=== PATIENT | male | born 1940 | race Caucasian/White ===

== ENCOUNTER → 2016-07-07 | Outpatient (REF) | payer BC, MEDICARE ==
[~2016-07-07] MED LIST: ACYC400T; ASPI-345; BSC10SU PR; DGX.25T PO; DIVA500T15 PO; GLIM2TAB PO; HYDR50CA3 PO; IMIP50TA4; INSU100C7 SQ; LEVO50TA6 PO; LSNP10T; LVT.025T; METF1000 PO; METF500T4 PO; POLY17PO6 PO; QUET100T29 PO; RISP2TAB3 PO; RSP3T PO; TAMS-8; WRF5T PO
== END ==
LOC: EMS 11:33
DX: Z53.20 Procedure and treatment not carried out because of patient's decision for unspecified reasons (principal)

== ENCOUNTER 2016-07-08 12:17 | Inpatient (IN) | payer BC, MEDICARE ==
[~2016-07-08] VITALS: Ht 185.4 cm; Wt 119.5 kg
[~2016-07-08 12:17] MED LIST changes: -BSC10SU PR; -DGX.25T PO; -GLIM2TAB PO; -LEVO50TA6 PO; -POLY17PO6 PO; -RISP2TAB3 PO; -WRF5T PO
[2016-07-08] MEDS ORDERED: BSC10SU PR (12:46)
[2016-07-08] MEDS ORDERED: LEVO50TA6 PO (12:46)
[2016-07-08] MEDS ORDERED: GLIM2TAB PO (12:46)
[2016-07-08 13:11] LABS: BASOPHILS % (AUTO) 0 % (0-2); EOSINOPHILS # (AUTO) 0.1 10^3uL; EOSINOPHILS % (AUTO) 2 % (0-4); LYMPHOCYTES # (AUTO) 1.8 X10^3; MEAN CORPUSCULAR HEMOGLOBIN 30.4 PG (26.0-34.0); MEAN CORPUSCULAR HGB CONC 34.9 g/dL (31.0-37.0); MEAN CORPUSCULAR VOLUME 87 FL (80-100); MEAN PLATELET VOLUME 11.4 FL (6.0-9.5); MONOCYTES # (AUTO) 0.6 X10^3; MONOCYTES % (AUTO) 10 % (3-11); NEUTROPHILS # (AUTO) 3.7 X10^3; NEUTROPHILS % (AUTO) 59 % (51-67); PLATELET COUNT 180 10^3uL (150-450); WHITE BLOOD COUNT 6.25 10^3uL (4.0-11.0)
[2016-07-08 13:24] LABS: ALBUMIN 3.7 g/dL (3.4-5.0); ANION GAP 15.3 MEQ/L (3-15); CALCULATED IONIZED CALCIUM 4.1 mg/dL (3.8-4.6)
[2016-07-08 13:48] LABS: BILIRUBIN,URINE Negative (Negative); CLARITY,URINE Clear; COLOR,URINE Yellow; GLUCOSE, URINE (UA) 3+ (Negative); LEUKOCYTE ESTERASE ,URINE Negative (Negative); UROBILINOGEN,URINE 0.2 mg/dL (0.2-1.0)
[2016-07-08 13:53] LABS: RBC,URINE 0-2 /HPF; URINE CENTRIFUGED VOLUME 12 mL
[2016-07-08] MEDS ORDERED: INSULIN REGULAR 1 UNIT/0.01 ML DOSE IV ONE (15:40)
--- NOTE | 2016-07-08 16:46 | NUR ---
Patient up to toilet to void. Bed bath given at edge of bed. New shorts provided to patient after soiling his own.
--- NOTE | 2016-07-08 17:57 | NUR ---
DR WEBSTER TALKS WITH DR MONTES RE PT. CL
--- NOTE | 2016-07-08 18:32 | NUR ---
Patient taken to 3rd floor shower by this nurse via wheelchair. Patient ambulates to shower chair with assistance of one. Paperwork, clothes, wallet, keys and glasses all taken to ICU. Handed over to KRISTAN Erickson. Care relinquished.
--- NOTE | 2016-07-08 19:03 | NUR ---
Ruddy arrives to room [address]. [address]. HR in the 150s
--- NOTE | 2016-07-08 19:06 | NUR ---
Report given to Maggi RUSHING and care relinquished.
--- NOTE | 2016-07-08 19:45 | History and Physical (E) ---
History & Physical PCP: Galen Dixon MD CC Falls and poor self care HPI Mr. Santos is known to our service from a similar admit in the spring of 2015. He presents to the ED today after calling EMS for the second time in 2 days to help him up from a fall. EMS brought him into the ED after persistent encouragement. In the ED, the patient was found to have significant hyperglycemia, some hypotension and tachycardia. CPK was also found to be elevated. Admission was requested. Patient endorses increasing weakness over the last few years. He fell today, he reports hitting his head, but no LOC. He endorses some left hip pain. He does not have any insight to why he fell. He does endorse some CP and palpitations. Upon arrival to the ICU, the patient was tachycardic and dyspneic. He was needing to use the bathroom and working to get out of bed. Discussed medical history. Patient is a poor historian. Discussed current care plan. PMH Psych diagnosis (Quetiapine, risperidone and divalproex) MADISYN--per record, however the patient denies this. CHF DLD Chronic back pain DM (glimepiride and metformin) Hyperthyroidism (levothyroxine) Prostate issues PSH--obtained from record Lithotripsy Tonsillectomy and adenoidectomy Hernia repair Cholecystectomy Hand surgery Lipoma resection ALLERGIES: NKDA per record Please see list at end of report. HOME MEDICATIONS: Bisacodyl 10 MG PA DAILY Divalproex 500mg HS Hydroxyzine 1 tab BID Levothyroxine 50 MCG PO DAILY Metformin 500mg daily Glimepiride 2 MG PO UD Quetiapine 100mg hsy Risperidone 3mg BID Please see list at end of report. FH Parents with psychiatric history. Sibling with depression and secondary to suicide. No children SH Denies tobaccoism or alcohol use. Lives alone. CODE STATUS Full code. ROS CONSTITUTION: Unknown weight trend. Endorses chills with recent falls. HEENT: No change in vision or hearing. Endorse mild sore throat. CV: Endorses some CP and palpitations. PULM: No shortness of breath, difficulty breathing. Endorses a cough unsure how long it's been present. GI: No upset stomach, nausea, vomiting, constipation, or blood in stool. Endorses some constipation. : No dysuria. No blood in urine. MS: No new muscle or joint aches and pains. INTEG: No rashes or sores. HEME/LYMPH: Endorses easy bruising with recent falls. PSYCH: Endorses increasing depression and irritability. OBJECTIVE Vital Signs Date Time Temp Pulse Resp B/P Pulse Ox O2 Delivery O2 Flow Rate FiO2 07/08/16 18:17 97.9 141 19 95 Room Air 07/08/16 12:19 95/63 GEN: Awake and alert. Mild distress. HEENT: EOMI, PERRL, moist oral mucosa. CV: RRR at this time. NSR on tele. LUNGS: CTA B. Mildly labored respirations. ABD: Soft, NT/ND with normal bowel sounds. EXTR: No edema. LABS CBC BMP Last 24 Hrs 07/08/16 13:04 Laboratory Results Past 24 Hrs 07/08/16 13:04: Alanine Aminotransferase (ALT/SGPT) 40, Albumin 3.7, Albumin/Globulin Ratio 1.121, Alkaline Phosphatase 84, Anion Gap 15.3, Aspartate Amino Transf (AST/SGOT ) 27, BUN/Creatinine Ratio 22, Basophils # (Auto) 0.0, Basophils (%) (Auto) 0, Blood Urea Nitrogen 16, C-Reactive Protein 1.10, Calcium Level 9.2, Calcium/ Ionized Calcium Ratio 4.1, Calculated Osmolality 282, Carbon Dioxide Level 27, Chloride Level 99, Creatinine 0.73, Eosinophils # (Auto) 0.1, Eosinophils (%) ( Auto) 2, Estimat Glomerular Filtration Rate 126.4, Estimated GFR (Non- 104.5, Glucose Level 417, Hematocrit 43.80, Hemoglobin 15.3, Hemoglobin A1c 8.7, Lymphocytes # (Auto) 1.8, Lymphocytes (%) (Auto) 29, Mean Corpuscular Hemoglobin 30.4, Mean Corpuscular Hemoglobin Concent 34.9, Mean Corpuscular Volume 87, Mean Platelet Volume 11.4, Monocytes # (Auto) 0.6, Monocytes (%) (Auto) 10, Neutrophils # (Auto) 3.7, Neutrophils (%) (Auto) 59, Platelet Count 180, Potassium Level 5.3, Red Blood Count 5.03, Red Cell Distribution Width 12.2, Sodium Level 136, Total Bilirubin 1.3, Total Creatine Kinase 333, Total Protein 7.0, Valproic Acid (Depakene) Level [Pending], White Blood Count 6.25 07/08/16 13:30: Myoglobin [Pending], Urine Bacteria None seen, Urine Bilirubin Negative, Urine Clarity Clear, Urine Collection Type Random voided, Urine Color Yellow, Urine Glucose (UA) 3+, Urine Hyaline Casts Rare, Urine Ketones 1+, Urine Leukocyte Esterase Negative, Urine Myoglobin [Pending], Urine Nitrite Negative, Urine Protein Trace, Urine RBC 0-2, Urine RBC (Auto) Trace-intact, Urine Specific [place] 1.020, Urine Squamous Epithelial Cells 0-2, Urine Urobilinogen 0.2, Urine WBC 0-2, Urine pH 5.0, Volume Urine Centrifuged 12 ml IMAGING None done in the ED. ASSESSMENT/PLAN Hypotension This is not new for patient, however hypotension with tachycardia is new for patient. BP has normalized on the ICU. Will monitor tele, EKG's, troponins and signs of infection. Possibly just hypovolemic. Will provide fluid resuscitation. Monitor patient closely in the ICU over night. Tachycardia Likely related to hypovolemia. EKG shows ST. Pulse has normalized. Monitor tele. Providing ivf's. Ordering a troponin, will trend. Hyperglycemia with DM Patient's A1c is 8.7, however sugars her are over 400. Will provide correction insulin and hold home metformin and glimepiride. Monitor accu cheks, provide SSI. Rhabdomyolysis Likely due to long lies with recent falls. Creat currently normal. Monitor labs and provide IVF's. Left hip pain Will get a film, as this was not done in the ED. Falls Patient has hit head, will get a CT tomorrow when his HR and BP are more stable. Psych diagnosis Likely the source of his poor self care. Will continue home regimen (Quetiapine, risperidone and divalproex). CHF Not apparently treated at home. DLD Not apparently treated at home. Hyperthyroidism TSH pending, continue home levothyroxine. DVT proph SCD's FEN Diabetic diet as tolerated. Electrolytes--hyperkalemia, look for correction with IVF'S. NS at 125/hr, reported history of CHF. Code status Full code. Dispo Inpatient for above issues. ICU to monitor hypotension closely. Will hydrated and look for improvement. Allergies/Home Medications Allergies: Coded Allergies: No Known Allergies (Verified Allergy, Unknown, 03/19/16) Reported Home Medications Scheduled Bisacodyl (Dulcolax) 10 MG PA DAILY (Reported) Divalproex Sodium (Divalproex Sodium ER) 500 MG PO HS (Reported) Glimepiride (Glimepiride) 2 MG PO UD (Reported) Hydroxyzine Pamoate (Hydroxyzine Pamoate) 50 MG PO BID (Reported) Levothyroxine Sodium (Levothyroxine Sodium) 50 MCG PO DAILY (Reported) Metformin HCl (Metformin HCl) 500 MG PO DAILY (Reported) Quetiapine Fumarate (Quetiapine Fumarate) 100 MG PO HS (Reported) Risperidone (Risperdal) 3 MG PO BID (Reported) Copies to: End of Report . STEVE MONTES MD Jul 08, 2016 19:45
[2016-07-08] MEDS ORDERED: DEXTROSE 50% 25 GM/50 ML SYRINGE IV PRN (19:50)
[2016-07-08] MEDS ORDERED: ACETAMINOPHEN 325 MG TAB (TYLENOL) PO PRN (19:50)
[2016-07-08] MEDS ORDERED: ONDANSETRON 2 MG/ML (Z0FRAN) 2 ML VIAL IV PRN (19:50)
[2016-07-08] MEDS ORDERED: GLUCAGON EMERGENCY 1 MG/KIT IM PRN (19:50)
[2016-07-08] MEDS ORDERED: ATENOLOL 25 MG (TENORMIN) TAB PO ONE (19:50)
[2016-07-08] MEDS ORDERED: DEXTROSE ORAL GEL (GLUTOSE 40%) 15 GM TUBE PO PRN (19:50)
[2016-07-08 20:00] VITALS: BP 131/94
[2016-07-08] MEDS: INSULIN LISPRO 1 UNIT/0.01 ML (HUMALOG) DOSE SC SCH (20:07)
[2016-07-08 22:00] VITALS: BP 105/57
[2016-07-08 22:07] LABS: Valproic Acid 8 ug/mL (50-100)
[2016-07-09] VITALS (11 sets, daily range): BP systolic 88–134; BP diastolic 55–79
[2016-07-09 06:29] LABS: BASOPHILS % (AUTO) 1 % (0-2); EOSINOPHILS # (AUTO) 0.2 10^3uL; EOSINOPHILS % (AUTO) 3 % (0-4); LYMPHOCYTES # (AUTO) 2.8 X10^3; MEAN CORPUSCULAR HEMOGLOBIN 30.4 PG (26.0-34.0); MEAN CORPUSCULAR HGB CONC 34.6 g/dL (31.0-37.0); MEAN CORPUSCULAR VOLUME 88 FL (80-100); MEAN PLATELET VOLUME 11.6 FL (6.0-9.5); MONOCYTES # (AUTO) 0.6 X10^3; MONOCYTES % (AUTO) 10 % (3-11); NEUTROPHILS # (AUTO) 2.7 X10^3; NEUTROPHILS % (AUTO) 43 % (51-67); PLATELET COUNT 193 10^3uL (150-450); WHITE BLOOD COUNT 6.38 10^3uL (4.0-11.0)
[2016-07-09 06:34] LABS: ALBUMIN 3.3 g/dL (3.4-5.0); ANION GAP 11.7 MEQ/L (3-15); CALCULATED IONIZED CALCIUM 4.1 mg/dL (3.8-4.6); TOTAL PROTEIN 6.5 g/dL (6.4-8.5)
--- NOTE | 2016-07-09 07:05 | NUR ---
received report from Maggi RUSHING. assumed patient care. Patient was resting in bed with eyes closed upon initial visit to patients room. vital signs are stable.
[2016-07-09] MEDS: INSULIN LISPRO 1 UNIT/0.01 ML (HUMALOG) DOSE SC SCH ×4 (07:19→20:47)
--- NOTE | 2016-07-09 08:50 | NUR ---
Pt up to bedside commode with assist x! for bowel movement. Pt is unsteady and slow when up on his feey. Patient was unable to make transfer to BSC in time and defecated in floor and down the side of the BSC. Py was cleaned of all bowel material and gowns and linens were changed.
--- NOTE | 2016-07-09 10:25 | Diagnostic Imaging Report ---
INDICATION: 76-year-old male injured in fall, presents with hip pain. COMPARISONS: None. FINDINGS: Single view of the pelvis is provided. The film is underpenetrated. There is otherwise no definite evidence of new or healing fractures, bony destruction or remodeling. Age-appropriate degenerative changes are seen in both hips but both femoral heads appear well-seated within their respective acetabula. IMPRESSION: Age-appropriate degenerative changes, otherwise no evidence of acute fracture or subluxation suggested. The film, however, is underpenetrated which does limit assessment. Dictated by: Dictated on workstation # [id number]
[2016-07-09] MEDS ORDERED: NS FLUSH 10 ML PRN IV (12:15)
[2016-07-09] MEDS ORDERED: NS FLUSH 3 ML PRN IV (12:15)
--- NOTE | 2016-07-09 13:45 | Diagnostic Imaging Report ---
PROCEDURE: CT head without contrast. TECHNIQUE: Multiple contiguous axial images were obtained through the brain without the use of intravenous contrast. INDICATION: Fall. Exam compared 09/11/2015. Cerebrocortical atrophy and vascular calcifications are chronic findings. There is some mild periventricular white matter hypodensity also chronic. There is no intracranial hemorrhage. No acute extra-axial collection. There is no hemo-sinus. No calvarial fracture deformity. IMPRESSION: Chronic stable senescent changes with no hemorrhage, fracture deformity, or other acute/posttraumatic sequelae. Dictated by: Dictated on workstation # [id number]
--- NOTE | 2016-07-09 14:05 | NUR ---
Dr Bryant present in patients room to assess patient condition. Conversation between [facility] physician and patient about patients plan after hospital discharge. Patient states he doesnt know what he wants to do upon dischargebut did verbalize agreement with Dr Bryant that he cant go back home and be by himself. 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 Patient could not voice the name of facility until facility name was verbalized byn this nurse. Patient then said he wanted to go to [facility] in [place]. Plans were presented to make contact with [facility] upon discharge to see about placement upon discharge from hospital in approximately 2-3 days.
--- NOTE | 2016-07-09 14:09 | OT Therapy Evaluation (E) ---
POC Plan of Care Problems Identified: Activity Tolerance, ADLs, Balance, Body Awareness, Lt UE Strength, ROM, Rt UE Strength, Safety Awareness Plan: Evaluation-OT, ADL/Self Care Management, Therapy Exercises, Therapy Activities, Pt/Family/Staff Education Frequency of OT: Five times weekly Duration of OT: Other (5 days ) Therapy to Include: ADL training, Balance with ADLs, Pt/family education, Therapeutic activities, UE strengthing Discharge Recommendations: TCU/Skilled NH Pt would benefit from skilled occupational therapy services to improve independence with self care tasks and increase safety awareness during functional activities including use of fall prevention techniques. Pt. Aware of Dx and Prognosis: Yes Pt. Aware of Risk & Benefit: Yes Goals: Discussed with patient Short Term Goals STG Time Frame: 3 Days Will Perform Feeding: With Setup/SBA Will Perform Grooming: With Setup/SBA Will Dress Upper Extremity: With Min Assistance Will Perform Funct Transfer: With Setup/SBA STG #1 Pt will participate in 15 min of ther ex with use of energy conservation techniques. [employer] Goals LTG Time Frame: 5 Days Will Perform Feeding: Independently Will Dress Upper Extremity: Independently Will Dress Lower Extremity: With Min Assistance (and use of a/e as needed. ) Will do Tub/Shower Transfer: CGA Will do Toilet Transfers: With Setup/SBA Will do Toilieting: With Setup/SBA Inital Evaluation/General Service Date/Time 07/09/16, 14:08 Primary Diagnosis: (1) Hypotension Treatment Diagnosis: (1) Weakness ICD Code: R53.1 Onset Date: 07/08/16 Start of Care Date: Jul 09, 2016 Precaution/Isolation: Standard Precautions Fall Level: High Risk 51 or greater Resuscitation Status: Full Code Reason for Referral: Evaluation and Treat History Comment PMH of psych diagnosis, MADISYN, CHF, DLD, crhonic back pain, DM, HTN Pain Level: 0 Oxygen Needed: Nasal cannula O2 liters/minute: 4 Rehabilitation Potential: Fair Rational for Skilled Treatment: Assistance with ADLs, Deconditioning, Maximize Safety, Prevent Falls Living Status Prior to Admit: Alone (Two level home with all needs on main floor. Pt reports rarely going upstairs. ) Prior to onset, pt reports completing self care tasks independently. Reports increased difficulty taking care of self at home and 2 significant falls landing on his head. Pt was cooking and driving prior to onset. Has limited family support in the area. Entry Into Home: [place] with Railing Shower and Tub Type: Walk in/curtain-grab bars Assist Devices: Tub Bench Current Function Assessment Mental Status Patient Orientation: Person Mental Status: Alert Cognition Memory: Impaired Safety/Judgement: Impaired Visual/Perceptual Skills Glassess: Yes Hearing: Impaired Hand Dominance Hand Dominance: Right ROM/Strength ROM Comment Limited active shoulder movement. Grossly 80 degrees of bilateral shoulder flexion. Able to passively movement all joints of BUE's. Strength Comment 3-/5 Neurological Coordination: Moderately impaired Balance: Physical help to sit Endurance Activity Endurance: Fair Bed Mobility/Transfers Bed Mobility: Moderate assist Supine from Sit: Moderate assist Sit to Stand: CGA Chair Transfer: CGA Sitting Balance: SBA ADLs Grooming: Grooming Status: Moderate assist Dressing Dressing: Moderate assist Bathing Shower/Bench Transfer Ability: Moderate assist Bathing- Type of Assistance: Moderate Assist Toileting Toilet Hygiene: Moderate Assist Toilet Transfer Ability: Moderate assist Additional Assessment/Comments Pt presents with decreased strength, decreased activity tolerance, decreased safety awareness. decreased independence with self care tasks of bathing, dressing, toileting, and grooming, and limited AROM which results in participation restrictions. Pt has limited family support and a psych diagnosis. Pt demonstrates multiple co morbidities affecting performance and required significant modification of tasks including physical assistance and verbal cueing for safety awareness, which presents at a high complexity level. CPT/G Codes Time In: 13:30 Time Out: 13:54 Total Minutes: 24 (07/27 eval) Codes/Minutes: 02218 Eval< 15 minutes SLADE ANDERSON OT Jul 09, 2016 14:09
[2016-07-09] MEDS ORDERED: RISP2TAB3 PO (14:10)
[2016-07-09] MEDS ORDERED: POLY17PO6 PO (14:13)
[2016-07-09] MEDS ORDERED: BISACODYL 10 MG SUPP (DULCOLAX) PR PRN (15:15)
[2016-07-09] MEDS ORDERED: DIGOXIN 0.25 MG/ML (LANOXIN) 2 ML AMP IV ONE ×2 (15:25→23:00)
--- NOTE | 2016-07-09 15:28 | NUR ---
MED REC COMPLETE--current med list obtained from retail pharmacy ([facility]), external med history application, and listing from patient's doctors (Estuardo and Jessica Juarez). Completed by Ibrahima Nice, Pharm. D. Candidate 2017.
--- NOTE | 2016-07-09 15:41 | Physical Therapy Evaluation(E) ---
Plan of Care STG Time Frame: 3 Days LTG Time Frame: 5 Days Goals Discussed/Agreed: Yes Plan: Balance, Functional Strengthening, Gait & Transfer Training, Progressive Ambulation, Strengthening, Transfer Training, Therapy Excercise Discharge Recommendations: TCU/Skilled NH (Patient demonstrates poor activity tolerance requiring rest breaks with seated LE exercises. ) Aware of Dx and Prognosis: Yes Aware of Risk & Benefit: Yes To be Seen: Daily Tuesday-Tuesday Initial Evaluation Service Date/Time 07/09/16, 15:30 Primary Diagnosis: (1) Hypotension (2) Weakness ICD Code: R53.1 (3) Hyperglycemia (4) Rhabdomyolysis ICD Code: M62.82 Treatment Diagnosis: (1) Weakness ICD Code: R53.1 Onset Date: 07/08/2016 Start of Care Date: Jul 09, 2016 Resuscitation Status: Full Code Precaution/Isolation: Standard Precautions Fall Level: High Risk 51 or greater Initial Assessment Reason for Rehab: Increase Mobility, Increase Strength, Increase Balance, Increase Transfers, Increase Endurance Medical History: CHF, DM, Depression, Other (Falls at home) Pain Location/Comment Patient reports mild pain in left hip with movement, no pain was noted in left hip with weight bearing. Prior Level of Function The patient lives at home with steps with hand rail to enter. He ambulated without AD and was driving prior to hospitalization. He reports having home health for medication management only, independent with ADLs. PT spoke with nursing staff prior to seeing patient and they noted his vital signs were more stable and tropnin levels were remaining about the same. Nursing staff reported it was okay to go work with the patient. Rehabilitation Potential: Fair Comment Patient alert to location, time, and self. Assistive Device: FWW Distance Walked in Feet 4 steps with FWW on 4L 02 nasal cannula. Assist: Min Assist/Contact Guard Gait Limitations: Fatigue ROM/Strength Hip Mobility: Right Hip Strength: 4 Left Hip Strength: 4 Knee Flexion Mobility: Right Knee Flexion Strength: 4 Left Knee Flexion Strength: 4 Knee Extension Mobility: Right Knee Extension Strength: 4 Left Knee Extension Strength: 4 (Some joint stiffness noted in left knee. ) Ankle Mobility: Right Ankle Strength: 4 Left Ankle Strength: 4 Assessment/Goals Initial Transfer Assessment Sit-Supine: Moderate Assistance Sitting Edge of Bed: Contact Guard Assist Supine-Sit: Not Assessed/NA Sit-Stand from Bed: Minimal Assistance Stand-Sit: Minimal Assistance (verbal cues to reach back prior to sitting. ) Ambulation: Contact Guard Assist Distance Walked in Feet 4 steps using FWW. Comment Patient fatigues quickly with activity Transfer Short Term Goals Rolling: Contact Guard Assist Sit-Supine: Minimal Assistance Sitting Edge of Bed: Supervision or setup Supine-Sit: Minimal Assistance Sit-Stand from bed: Contact Guard Assist Stand-Sit: Contact Guard Assist Ambulation: Contact Guard Assist Distance to Walk in Feet 100 feet with appropriate AD. . Transfer Shelter Goals Rolling: Supervision or setup Sit-Supine: Supervision or setup Sitting Edge of Bed: Supervision or setup Supine-Sit: Supervision or setup Sit-Stand from bed: Supervision or setup Pivot Transfer: Supervision or setup Ambulation: Supervision or setup Distance to Walk in Feet A minimum of 200 feet with appropriate AD. Treatments Treatments Sit, Stand, Supine: Sitting Repetition: 2 x 10 Exercise: LAQ, Hip Flexion, TR, HR Comment Patient transfers from bed to chair with minimum assistance to stand verbal cues to use UE to push off bed to stand and reach back to sit. Comment Patient requires rest breaks between each set of exercise secondary to shortness of air. Coding Time In: 1123 Time Out: 1155 Total Minutes: 32 Code & Unit: 47547 Eval< 30 min, 73638 Exercise Therp 15 m ABHISHEK EISENBERG PT Jul 09, 2016 15:41
--- NOTE | 2016-07-09 15:42 | PT Daily Note Inpatient (E) ---
PT Daily Treatment Service Date/Time 07/09/16, 15:41 Medical Diagnosis: (1) Hypotension (2) Weakness ICD Code: R53.1 (3) Hyperglycemia (4) Rhabdomyolysis ICD Code: M62.82 Physical Therapy: (1) Weakness ICD Code: R53.1 Precaution/Isolation: Standard Precautions Resuscitation Status: Full Code Fall Level: High Risk 51 or greater Subjective Oxygen Delivery: Nasal cannula O2 liters/minute: 4 Education/Plan Plan Patient will be seen: Daily Tuesday-Tuesday Coding No Treatment Provide Reason: Procedure being performed (PT checked on patient this afternoon, but he having labs drawn. Patient may be transferring to the Med /Surg floor later this date. ) ABHISHEK EISENBERG PT Jul 09, 2016 15:42
--- NOTE | 2016-07-09 16:01 | Progress Note-A/P (E) ---
Progress Note Subjective: Patient is resting in cart. He denies any new concerns. Denies chest pain at this time. Discussed discharge plans. Patient reports he knows the geotechnical engineering technician at [facility] in [place] and would like to be discharged to there. Will have CC work with patient regarding this. Objective: Current Medications Current Medications Insulin Human Lispro QIDACHS SC Acetaminophen 650 mg Q6H PRN PO Ondansetron HCl mg Q6H PRN IV Vital Signs Date Time Temp Pulse Resp B/P Pulse Ox O2 Delivery O2 Flow Rate FiO2 07/09/16 13:50 94 07/09/16 13:43 97.1 16 120/65 95 Nasal cannula 07/09/16 10:29 0.00 I & O Past 24 hrs 07/09/16 07:00 Intake Total 1500 ml Output Total 850 ml Balance 650 ml Intake Oral 350 ml IV Total 1150 ml Output Urine Total 850 ml Physical Exam General--Awake and alert. No distress. HEENT--Normocephalic. MMM in oral cavity. Nasal cannula in place. Lungs--Clear to auscultation bilaterally. Nonlabored respirations. Heart--RRR. No murmurs. Abdomen--Obese. Normal bowel sounds. Soft. Nondistended. Nontender. Extremities--No edema in lower extremities. Past 24 hour Lab Results 07/09/16 05:55 Laboratory Results Past 24 Hrs 07/08/16 21:00: Troponin I 0.048 07/09/16 05:55: Troponin I 0.105, Alanine Aminotransferase (ALT/SGPT) 40, Albumin 3.3, Albumin/ Globulin Ratio 1.031, Alkaline Phosphatase 72, Anion Gap 11.7, Aspartate Amino Transf (AST/SGOT) 26, BUN/Creatinine Ratio 26, Basophils # (Auto) 0.0, Basophils (%) (Auto) 1, Blood Urea Nitrogen 18, Calcium Level 8.9, Calcium/ Ionized Calcium Ratio 4.1, Calculated Osmolality 277, Carbon Dioxide Level 26, Chloride Level 105, Creatinine 0.69, Eosinophils # (Auto) 0.2, Eosinophils (%) ( Auto) 3, Estimat Glomerular Filtration Rate 134.9, Estimated GFR (Non- 111.5, Glucose Level 266, Hematocrit 40.50, Hemoglobin 14.0, Lymphocytes # (Auto) 2.8, Lymphocytes (%) (Auto) 45, Magnesium Level 2.0, Mean Corpuscular Hemoglobin 30.4, Mean Corpuscular Hemoglobin Concent 34.6, Mean Corpuscular Volume 88, Mean Platelet Volume 11.6, Monocytes # (Auto) 0.6, Monocytes (%) (Auto) 10, Neutrophils # (Auto) 2.7, Neutrophils (%) (Auto) 43, Platelet Count 193, Potassium Level 4.5, Red Blood Count 4.60, Red Cell Distribution Width 12.4, Sodium Level 138, Total Bilirubin 1.1, Total Protein 6.5, White Blood Count 6.38 Imaging Results 07.08.16 Pelvis film IMPRESSION: Age-appropriate degenerative changes, otherwise no evidence of acute fracture or subluxation suggested. The film, however, is underpenetrated which does limit assessment. 07.09.16 CT Head IMPRESSION: Chronic stable senescent changes with no hemorrhage, fracture deformity, or other acute/posttraumatic sequelae. Assessment/Plan Elevated troponin 0.045-->0.048-->0.105-->00.75 Endorsed chest pain and palpitation on admission, none today. Patient is not endorsing chest pain. EKG on admission was normal. Repeating troponin and EKG today. Tachycardia (RVR) Intermittent. No leukocytosis, tachypnea or fever to support SIRS diagnosis. Atrial fibrillation with RVR Intermittent. Will give IV digoxin and start daily dig. Given his hypotension will avoid diltiazem. Discussed with Dr. Hilton who agrees, however he feels we could add a low dose BB (metoprolol tartrate at12.5 BID) if needed. Records requested from [facility]. Hypotension Resolved with fluid resuscitation. Monitored patient closely in the ICU over night. Hyperglycemia with DM Patient's A1c is 8.7. Accu cheks (257-313), titrating SSI up, continue to hold home metformin and glimepiride. Rhabdomyolysis Likely due to long lies with recent falls. Creat currently normal. Monitor labs and provide IVF's. CPK trending down. Left hip pain Imaging negative. Falls Patient has hit head, CT head negative. Schizophrenia Continue home regimen (Quetiapine, risperidone and divalproex). CHF Not apparently treated at home. DLD Not apparently treated at home. Hypothyroidism TSH slightly elevated, continue home levothyroxine, have TSH rechecked in outpatient setting when patient is well. DVT proph SCD's FEN Diabetic diet as tolerated. Electrolytes--hyperkalemia, improved with IVF'S. NS at 125/hr x 1L, reported history of CHF. Code status Full code. Dispo Inpatient for above issues. ICU to monitor hypotension closely. Afib developed this afternoon, rates vary from 100-140's. Troponin has bumped, rechecking this afternoon. Will touch base with Dr. Hilton. STEVE MONTES MD Jul 09, 2016 16:01
[2016-07-09] MEDS: metFORMIN 1000 MG (GLUCOPHAGE) TABLET PO SCH (17:48)
[2016-07-09] MEDS: GLIMEPIRIDE 2 MG (AMARYL) TAB PO SCH (17:48)
--- NOTE | 2016-07-09 18:50 | NUR ---
Report received, care assumed. Pt resting in bed with eyes closed, tv on. No needs at this time. Call light in reach.
--- NOTE | 2016-07-09 19:20 | NUR ---
Pt requests to use BSC for BM. Assist pt up to BSC, transferred well. Does not follow directions well. Assisted with urinal first, voided without difficulty. Pt on BSC for approximately 5-10 seconds before saying he wouldn't be able to do anything. Encouraged pt to sit for a while and attempt. Pt cooperative. Pt on BSC for approximately three minutes before insisting nothing will occur and wanting to go back to bed. Lyn care provided. Pt assisted back in to bed. SCDs reapplied and turned on. Pt denies other needs. Call light in reach, side rails up times two, H2O and personal items in reach. Assessment completed. Pt denies discomfort. Will continue to monitor.
--- NOTE | 2016-07-09 20:20 | NUR ---
Dr. Mendoza in with patient.
[2016-07-09] MEDS: hydrOXYzine 25 MG (ATARAX) TABLET PO SCH (20:23)
--- NOTE | 2016-07-09 20:30 | NUR ---
Assited pt with urinal in bed. Voided without difficulty. Pt also took evening meds without difficulty. Denied other needs. Call light in reach.
[2016-07-09] MEDS ORDERED: DIVALPROEX EXT RELEASE 500 MG (DEPAKOTE ER) TAB PO SCH (21:00)
[2016-07-09] MEDS ORDERED: QUEtiapine 100 MG (SEROquel) TAB IMMEDIATE RELEASE PO SCH (21:00)
[2016-07-10] VITALS (9 sets, daily range): BP systolic 87–165; BP diastolic 50–71
[2016-07-10 01:16] LABS: Myoglobin, Serum 218 ng/mL (0-106)
--- NOTE | 2016-07-10 03:01 | NUR ---
0255 converted from afib to NSR with 1st degree block on telemetry.
[2016-07-10] MEDS: INSULIN LISPRO 1 UNIT/0.01 ML (HUMALOG) DOSE SC SCH ×4 (06:20→21:00)
--- NOTE | 2016-07-10 06:30 | NUR ---
Ruddy resting in bed with eyes closed. Opens to verbal stimuli answers appropriately and returns to resting. O2 sats high 90's with O2 3L/nc, usually moves to only 1 nare. Awakens for urinating q 2 hrs while sleeping with some incontinent output. Skin warm dry and intact, Sinus rhythm on telemetry 72-75.
[2016-07-10] MEDS ORDERED: LEVOTHYROXINE 50 MCG (LEVOTHROID) TABLET PO SCH (07:00)
[2016-07-10] MEDS ORDERED: DIGOXIN 0.25 MG/ML (LANOXIN) 2 ML AMP IV ONE (07:00)
--- NOTE | 2016-07-10 07:00 | NUR ---
Report received from Adri RUSHING and care assumed. At present pt is resting in bed with eyes closed resp even and unlabored. Oxygen in on 3L/NC. Monitor on showing SR with PVC, 1st degree block. VS within normal limits.
--- NOTE | 2016-07-10 07:45 | NUR ---
Pt awaken and assessments completed. Pt is cooperative but does not communicate much.
--- NOTE | 2016-07-10 08:00 | NUR ---
Breakfast into pt, requested milk for cereal. Pt ate breakfast and helped to BSC, voided in urinal but had no BM. Pt returned to bed and requested the lights be turned off as he was going back to sleep.
[2016-07-10] MEDS: hydrOXYzine 25 MG (ATARAX) TABLET PO SCH ×2 (08:43→20:28)
[2016-07-10] MEDS: GLIMEPIRIDE 2 MG (AMARYL) TAB PO SCH ×2 (08:48→17:21)
[2016-07-10] MEDS: metFORMIN 1000 MG (GLUCOPHAGE) TABLET PO SCH ×2 (08:48→17:21)
[2016-07-10] MEDS ORDERED: DIGOXIN 0.25 MG (LANOXIN) TAB PO SCH (09:00)
[2016-07-10] MEDS ORDERED: risperiDONE 1 MG (RisperDAL) TAB PO SCH (09:00)
[2016-07-10] MEDS ORDERED: POLYETHYLENE GLYCOL 17 GM (MIRALAX) PACKET PO SCH (09:00)
[2016-07-10] MEDS ORDERED: NS FLUSH 3 ML DAILY IV SCH (09:00)
[2016-07-10] MEDS ORDERED: MAGNESIUM HYDROXIDE 80MG/ML (MILK OF MAGNESIA) 30 ML UDC PO PRN ×2 (09:20→10:15)
[2016-07-10] MEDS ORDERED: DOCUSATE SODIUM 100 MG (COLACE) CAP PO PRN ×2 (09:20→10:13)
[2016-07-10] MEDS ORDERED: MAG HYDROX/AL HYDROX/SIMETH 200-200-20/5 ML (MAG-AL PLUS) 30 ML UDC PO PRN ×2 (09:20→10:16)
[2016-07-10] MEDS ORDERED: ENOXAPARIN 40 MG/0.4 ML (LOVENOX) SYR SC SCH (09:20)
[2016-07-10] MEDS ORDERED: CALCIUM CARBONATE CHEWABLE 300 MG (TUMS) TABLET PO PRN ×2 (09:20→10:12)
--- NOTE | 2016-07-10 09:25 | NUR ---
Dr. Mendoza present to examine pt, new orders received.
--- NOTE | 2016-07-10 09:25 | Progress Note (E) ---
Progress Note SUBJECTIVE Seen on rounds yesterday evening. Calm, interactive, but notably paranoid about his caregivers. Did tolerate reassurance and through the night, no major issues reported. Rhythm converted to NSR this early AM. Troponin down to normal range. CPK has normalized. Has had BM. On exam, resting in bed. Stirs to exam. Calm, interactive. Denies new complaints. Is not voicing as many paranoid concerns as he was last night. Discussed findings, plan of care. OBJECTIVE Vital Signs Date Time Temp Pulse Resp B/P Pulse Ox O2 Delivery O2 Flow Rate FiO2 07/10/16 08:23 79 15 140/67 97 Nasal cannula 07/10/16 06:10 96.7 07/09/16 10:29 0.00 I & O 07/09/16 07/10/16 Cumulative From/Thru 19:00 07:00 07/08/16 12:19 - 07/10/16 06:00 Intake Total 480 ml 50 ml 2030 ml Output Total 750 ml 1200 ml 2800 ml Balance -270 ml -1150 ml -770 ml GEN: Resting in bed. Stirs to exam. NAD at present. HEENT: EOMI, clear sclerae, dry oral mucosa. CV: Regular without murmur. SR on tele. PULM: CTA B with mildly diminished bases, no R/R/W. ABD: Obese, soft, NT/ND with normal bowel sounds. EXTR: Trace ankle edema with some venous stasis changes noted. INTEG: Age related changes. NEURO: No focal motor neuro deficit. PSYCH: Appearance: Lying in bed, dressed in hospital gown. Affect: Restricted Mood: "Better." Speech: Fluid, fluent. Behavior: Calm, cooperative, interactive. Eye contact: Good TC: Denies SI (but he says he has thoughts about dying.) Denies HI/AH/ VH and denies paranoia. TP: Linear, coherent. Insight: Fair Judgement: Fair Lab-Past 14 Days, 35 Results 07/08/16 13:04: Alanine Aminotransferase (ALT/SGPT) 40, Albumin 3.7, Albumin/Globulin Ratio 1.121, Alkaline Phosphatase 84, Anion Gap 15.3H, Aspartate Amino Transf (AST/ SGOT) 27, BUN/Creatinine Ratio 22H, Basophils # (Auto) 0.0, Basophils (%) (Auto ) 0, Blood Urea Nitrogen 16, C-Reactive Protein 1.10H, Calcium Level 9.2, Calcium/Ionized Calcium Ratio 4.1, Calculated Osmolality 282, Carbon Dioxide Level 27, Chloride Level 99, Creatinine 0.73L, Eosinophils # (Auto) 0.1, Eosinophils (%) (Auto) 2, Estimat Glomerular Filtration Rate 126.4, Estimated GFR (Non- 104.5, Glucose Level 417#*H, Hematocrit 43.80, Hemoglobin 15.3, Hemoglobin A1c 8.7H, Lymphocytes # (Auto) 1.8, Lymphocytes (%) (Auto) 29, Mean Corpuscular Hemoglobin 30.4, Mean Corpuscular Hemoglobin Concent 34.9, Mean Corpuscular Volume 87, Mean Platelet Volume 11.4H, Monocytes # (Auto) 0.6, Monocytes (%) (Auto) 10, Myoglobin 218H, Neutrophils # (Auto) 3.7 , Neutrophils (%) (Auto) 59, Platelet Count 180, Potassium Level 5.3H, Red Blood Count 5.03, Red Cell Distribution Width 12.2, Sodium Level 136, Thyroid Stimulating Hormone (TSH) 5.11H, Total Bilirubin 1.3#H, Total Creatine Kinase 333*H, Total Protein 7.0, Troponin I 0.045, Valproic Acid (Depakene) Level 8L, White Blood Count 6.25 07/08/16 13:30: Urine Bacteria None seen, Urine Bilirubin Negative, Urine Clarity Clear, Urine Collection Type Random voided, Urine Color Yellow, Urine Glucose (UA) 3+H, Urine Hyaline Casts Rare, Urine Ketones 1+H, Urine Leukocyte Esterase Negative, Urine Myoglobin [Pending], Urine Nitrite Negative, Urine Protein TraceH, Urine RBC 0-2, Urine RBC (Auto) Trace-intactH, Urine Specific [place] 1.020, Urine Squamous Epithelial Cells 0-2, Urine Urobilinogen 0.2, Urine WBC 0-2, Urine pH 5.0, Volume Urine Centrifuged 12 ml 07/08/16 21:00: Troponin I 0.048 07/09/16 05:55: Alanine Aminotransferase (ALT/SGPT) 40, Albumin 3.3L, Albumin/Globulin Ratio 1.031L, Alkaline Phosphatase 72, Anion Gap 11.7, Aspartate Amino Transf (AST/ SGOT) 26, BUN/Creatinine Ratio 26H, Basophils # (Auto) 0.0, Basophils (%) (Auto ) 1, Blood Urea Nitrogen 18, Calcium Level 8.9, Calcium/Ionized Calcium Ratio 4.1, Calculated Osmolality 277L, Carbon Dioxide Level 26, Chloride Level 105, Creatinine 0.69L, Eosinophils # (Auto) 0.2, Eosinophils (%) (Auto) 3, Estimat Glomerular Filtration Rate 134.9, Estimated GFR (Non- 111.5, Glucose Level 266#H, Hematocrit 40.50, Hemoglobin 14.0, Lymphocytes # (Auto) 2.8 , Lymphocytes (%) (Auto) 45, Mean Corpuscular Hemoglobin 30.4, Mean Corpuscular Hemoglobin Concent 34.6, Mean Corpuscular Volume 88, Mean Platelet Volume 11.6H , Monocytes # (Auto) 0.6, Monocytes (%) (Auto) 10, Neutrophils # (Auto) 2.7, Neutrophils (%) (Auto) 43L, Platelet Count 193, Potassium Level 4.5, Red Blood Count 4.60, Red Cell Distribution Width 12.4, Sodium Level 138, Total Bilirubin 1.1H, Total Protein 6.5, Troponin I 0.105H, White Blood Count 6.38, Magnesium Level 2.0 07/09/16 15:20: Total Creatine Kinase 165#, Troponin I 0.075 TELE 07/10 NSR with 1 AVB IMAGING 07/10/15 CXR: PENDING 07/09/16 CT HEAD WO PROCEDURE: CT head without contrast. TECHNIQUE: Multiple contiguous axial images were obtained through the brain without the use of intravenous contrast. INDICATION: Fall. Exam compared 09/11/2015. Cerebrocortical atrophy and vascular calcifications are chronic findings. There is some mild periventricular white matter hypodensity also chronic. There is no intracranial hemorrhage. No acute extra-axial collection. There is no hemo- sinus. No calvarial fracture deformity. IMPRESSION: Chronic stable senescent changes with no hemorrhage, fracture deformity, or other acute/posttraumatic sequelae. 07/08/16 PELVIS INDICATION: 76-year-old male injured in fall, presents with hip pain. COMPARISONS: None. FINDINGS: Single view of the pelvis is provided. The film is underpenetrated. There is otherwise no definite evidence of new or healing fractures, bony destruction or remodeling. Age-appropriate degenerative changes are seen in both hips but both femoral heads appear well-seated within their respective acetabula. IMPRESSION: Age-appropriate degenerative changes, otherwise no evidence of acute fracture or subluxation suggested. The film, however, is underpenetrated which does limit assessment. ASSESSMENT Ruddy Santos is a 76 year old male admitted from ED 07/08 where he presented with complaint of falls at home and was found to have atrial fibrillation with intermittent RVR. He had mild elevation of CPK and troponin. He has increased paranoia with underlying diagnosis of schizophrenia. He has other chronic problems. PLAN * Acute Respiratory Distress: Attributed to atrial fibrillation. Oxygen protocol. CXR not checked since admit, so check this 07/10. * Atrial Fibrillation with Intermittent RVR: Converted to NSR after receiving digoxin IV load. Continued digoxin PO. [id number] score = 4 (4%/year risk of stroke.) Discussed anticoagulation and started warfarin. * Falls at home: PT/OT eval and treat. May benefit from skilled care. * Schizophrenia, Paranoia: Increased paranoia noted. Consider screening/psych eval for placement once medical condition is stable. Continued risperidone, quetiapine, divalproex. * Chest Pain: Resolved * Elevated Troponin: Resolved. Mild with peak troponin 0.105 07/09. Observe. Monitor tele. * Elevated CPK: Mild, resolving. Attributed to falls at home. * Hypotension: Attributed to arrhythmia, dehydration. Resolved with IVF. * Physical Deconditioning: PT/OT eval and treat. * F/E/N: Diabetic diet. Peripheral IV. I&O, daily weight. * Prophylaxis: Enoxaparin * Code Status: Full * Dispo: Inpatient, ICU initially. Transferred to med/surg 07/11. Needs psych eval and may need psych hospitalization after stabilization of his medical issues. If psych issues remain stable, then he would instead benefit from skilled care/rehab. CHRONIC ISSUES * Hypothyroidism: TSH mildly elevated at 5.11. Repeat in 3-4 weeks and increase dose if still elevated. Levothyroxine. * Constipation: Bowel regimen * Diabetes Mellitus Type II, Uncontrolled: A1C = 8.7. Glimepiride, metformin. Sliding scale. * HTN: Not on BP med at home. Had some transient low BP this hospitalization. Observe. Consider LADY-I. LONDON RODRIGUEZ MD Jul 10, 2016 09:23
--- NOTE | 2016-07-10 09:30 | NUR ---
Kehinde from radiology present to take pt to have chest xray done. Pt assisted to w/c with assist of two. Pt is weak and slightly disoriented.
--- NOTE | 2016-07-10 10:00 | NUR ---
Report given to Rose Marie RUSHING and pt transferred to room 311 after coming back from radiology. Care relinquished.
--- NOTE | 2016-07-10 10:00 | NUR ---
Report received from KRISTAN Farnsworth. Pt transferred to 311 via wheelchair after returning from xray.
[2016-07-10] MEDS ORDERED: ACETAMINOPHEN 325 MG TAB (TYLENOL) PO PRN (10:11)
[2016-07-10] MEDS ORDERED: BISACODYL 10 MG SUPP (DULCOLAX) PR PRN (10:12)
[2016-07-10] MEDS ORDERED: DEXTROSE 50% 25 GM/50 ML SYRINGE IV PRN (10:12)
[2016-07-10] MEDS ORDERED: DEXTROSE ORAL GEL (GLUTOSE 40%) 15 GM TUBE PO PRN (10:13)
[2016-07-10] MEDS ORDERED: GLUCAGON EMERGENCY 1 MG/KIT IM PRN (10:14)
[2016-07-10] MEDS ORDERED: ONDANSETRON 2 MG/ML (Z0FRAN) 2 ML VIAL IV PRN (10:16)
[2016-07-10] MEDS ORDERED: SODIUM CHLORIDE FLUSH 3 ML SYR IV PRN (10:17)
[2016-07-10] MEDS ORDERED: SODIUM CHLORIDE FLUSH 10 ML SYR IV PRN (10:17)
[2016-07-10] MEDS ORDERED: WARFARIN MONITORING XX SCH (10:25)
--- NOTE | 2016-07-10 12:50 | PT Daily Note Inpatient (E) ---
PT Daily Treatment Service Date/Time 07/10/16, 12:42 Medical Diagnosis: (1) Hypotension (2) Weakness ICD Code: R53.1 (3) Hyperglycemia (4) Rhabdomyolysis ICD Code: M62.82 Physical Therapy: (1) Weakness ICD Code: R53.1 Precaution/Isolation: Standard Precautions Resuscitation Status: Full Code Fall Level: High Risk 51 or greater Subjective Pt confused at times but did follow directions. He was asleep when PT first entered room. Willing to work but says he is not happy about it. Pain Level: 0 Oxygen Delivery: Nasal cannula O2 liters/minute: 3L Treatments Sit, Stand, Supine: Sitting, Long Sitting Extremity: Both Lower Extremity Assistance: AROM Repetition: 1 x 15 Exercise: AP, Heel Slides, Hip Abduction, Hip Adduction, SAQ, LAQ Comment Distracted easily during ex and required verbal cues and demonstration to get back on task. Transfers Rolling: Minimal Assistance Sit-Supine: Not Assessed/NA Sitting Edge of Bed: Minimal Assistance Supine-Sit: Moderate Assistance Sit-Stand from bed: Minimal Assistance Stand-Sit: Moderate Assistance (for safety) Gait Distance Walked: 2X10 feet Weight Bearing Status: Full Assistive Device: FWW Gait Assist: Min Assist/Contact Guard Gait Description: Unsteady, Wide Based Gait, Decreased [place], Slow, Shuffling Education/Plan Education Education Needs: Use of Devices/Equipment, Safety Assessment Pt fatigues easily today with fair participation. Plan Patient will be seen: Daily Tuesday-Tuesday Coding Time In: 11:17 Time Out: 11:38 Total Minutes: 21 Codes/Units: 27031 Exercise Therp 15 m Laure Dos Santos PT Jul 10, 2016 12:50
--- NOTE | 2016-07-10 13:40 | Diagnostic Imaging Report ---
INDICATION: Respiratory distress. Study compared 01/08/2016 FINDINGS: Enlargement of the heart is unchanged in magnitude and configuration. No focal consolidation. No effusion or pneumothorax. No significant atelectasis. IMPRESSION: Enlargement of the cardiac silhouette stable. No acute pathology or change identified. Dictated by: Dictated on workstation # [id number]
--- NOTE | 2016-07-10 17:00 | NUR ---
Pt is sitting up in recliner, on 3L NC- SPO2 93%. Appears to be comfortable at this time.
[2016-07-10] MEDS: warFARin 5 MG (COUMADIN) TAB PO SCH (17:20)
--- NOTE | 2016-07-10 18:24 | NUR ---
Pt rests intermittently since transfer to floor. Up to chair for meals. Denies complaints. Flat affect. Cont on 3L oxygen per nc.
--- NOTE | 2016-07-10 19:20 | NUR ---
IV to RFA red, swollen; discontinued catheter tip intact.. Restarted 22G to Right hand by Anne Dickey RN.
[2016-07-10] MEDS: QUEtiapine 100 MG (SEROquel) TAB IMMEDIATE RELEASE PO SCH (20:28)
[2016-07-10] MEDS: DIVALPROEX EXT RELEASE 500 MG (DEPAKOTE ER) TAB PO SCH (20:28)
[2016-07-11] VITALS: BP 132/73
--- NOTE | 2016-07-11 | NUR ---
Pt attempted to get out of bed. Staff caught him just as he was sitting up. Assisted pt to side of bed. Asked if he had any needs. Pt denied. Was a bit confused as to what he was doing. Reported he was tending "Aunt Shahla's garden". Pt was able to identify where he was, the hospital. Assisted pt back into bed and repositioned. Pt denies other needs. Call light in reach, side rails up times three, bed alarm on. Addendum: 07/12/16 at 0232 by Ania Flanagan RN Event kaylan mejia 07/11/16 @ 4035
[2016-07-11 04:13] VITALS: BP 122/68
--- NOTE | 2016-07-11 05:01 | NUR ---
Pt is resting in bed asleep, has been up to restroom x 2 during this shift. Pt does not use call light, he will yell out for help, and then proceed to try and get up himself. Pt has been educated and reoriented several times. Bed alarm, tab alarm are on and working, call light in reach, will continue to monitor.
[2016-07-11] MEDS: LEVOTHYROXINE 50 MCG (LEVOTHROID) TABLET PO SCH (06:28)
[2016-07-11 06:57] LABS: ALBUMIN 3.2 g/dL (3.4-5.0); ANION GAP 12.5 MEQ/L (3-15); PHOSPHORUS 4.4 mg/dL (2.4-4.9)
--- NOTE | 2016-07-11 07:05 | NUR ---
Report received from Taylor RUSHING and care assumed. Pt resting in bed at this time.
[2016-07-11] MEDS: INSULIN LISPRO 1 UNIT/0.01 ML (HUMALOG) DOSE SC SCH ×4 (07:30→20:57)
--- NOTE | 2016-07-11 08:00 | NUR ---
Pt ambulated to toilet and then up in chair for breakfast. Assessments completed.
[2016-07-11 08:14] VITALS: BP 104/59
[2016-07-11] MEDS: hydrOXYzine 25 MG (ATARAX) TABLET PO SCH ×2 (08:35→21:00)
[2016-07-11] MEDS: DIGOXIN 0.25 MG (LANOXIN) TAB PO SCH (08:35)
[2016-07-11] MEDS: risperiDONE 1 MG (RisperDAL) TAB PO SCH (08:36)
[2016-07-11] MEDS: metFORMIN 1000 MG (GLUCOPHAGE) TABLET PO SCH ×2 (08:36→17:49)
[2016-07-11] MEDS: GLIMEPIRIDE 2 MG (AMARYL) TAB PO SCH ×2 (08:36→17:49)
[2016-07-11] MEDS: POLYETHYLENE GLYCOL 17 GM (MIRALAX) PACKET PO SCH (08:36)
[2016-07-11] MEDS: ENOXAPARIN 40 MG/0.4 ML (LOVENOX) SYR SC SCH (08:37)
--- NOTE | 2016-07-11 12:00 | NUR ---
Accu check results 194mg/dl, 1 unit of humalog given per SSI
--- NOTE | 2016-07-11 13:43 | NUR ---
Pt returned to bed after lunch. Denies needs at present.
--- NOTE | 2016-07-11 13:43 | Progress Note (E) ---
Progress Note SUBJECTIVE No further afib on tele. Stopped tele this AM. Ambulated with standby assist and walker to shower. Has a slow, shuffling gait. Vitals stable. 3 L NC still. Chemistry stable. INR 1.1 today. Remains on warfarin 10 mg. Pleasant and interactive though remains mildly disoriented to time, situation. Reorientd and updated on findings, plan of care. OBJECTIVE Vital Signs Date Time Temp Pulse Resp B/P Pulse Ox O2 Delivery O2 Flow Rate FiO2 07/11/16 09:43 76 07/11/16 08:14 96.8 14 104/59 94 Nasal cannula 07/11/16 00:00 3L.00 I & O 07/10/16 07/11/16 Cumulative From/Thru 18:59 06:59 07/08/16 12:19 - 07/11/16 06:06 Intake Total 540 ml 200 ml 2770 ml Output Total 400 ml 1600 ml 4800 ml Balance 140 ml -1400 ml -2030 ml GEN: Resting in bed. Stirs to exam. NAD at present. HEENT: EOMI, clear sclerae, dry oral mucosa. CV: Regular without murmur. SR on tele. PULM: CTA B with mildly diminished bases, no R/R/W. ABD: Obese, soft, NT/ND with normal bowel sounds. EXTR: Trace ankle edema with some venous stasis changes noted. INTEG: Age related changes. NEURO: No focal motor neuro deficit. PSYCH: 07/10 Appearance: Lying in bed, dressed in hospital gown. Affect: Restricted Mood: "Better." Speech: Fluid, fluent. Behavior: Calm, cooperative, interactive. Eye contact: Good TC: Denies SI (but he says he has thoughts about dying.) Denies HI/AH/ VH and denies paranoia. TP: Linear, coherent. Insight: Fair Judgement: Fair Lab-Past 14 Days, 35 Results 07/08/16 13:04: Alanine Aminotransferase (ALT/SGPT) 40, Albumin 3.7, Albumin/Globulin Ratio 1.121, Alkaline Phosphatase 84, Anion Gap 15.3H, Aspartate Amino Transf (AST/ SGOT) 27, BUN/Creatinine Ratio 22H, Basophils # (Auto) 0.0, Basophils (%) (Auto ) 0, Blood Urea Nitrogen 16, C-Reactive Protein 1.10H, Calcium Level 9.2, Calcium/Ionized Calcium Ratio 4.1, Calculated Osmolality 282, Carbon Dioxide Level 27, Chloride Level 99, Creatinine 0.73L, Eosinophils # (Auto) 0.1, Eosinophils (%) (Auto) 2, Estimat Glomerular Filtration Rate 126.4, Estimated GFR (Non- 104.5, Glucose Level 417#*H, Hematocrit 43.80, Hemoglobin 15.3, Hemoglobin A1c 8.7H, Lymphocytes # (Auto) 1.8, Lymphocytes (%) (Auto) 29, Mean Corpuscular Hemoglobin 30.4, Mean Corpuscular Hemoglobin Concent 34.9, Mean Corpuscular Volume 87, Mean Platelet Volume 11.4H, Monocytes # (Auto) 0.6, Monocytes (%) (Auto) 10, Myoglobin 218H, Neutrophils # (Auto) 3.7 , Neutrophils (%) (Auto) 59, Platelet Count 180, Potassium Level 5.3H, Red Blood Count 5.03, Red Cell Distribution Width 12.2, Sodium Level 136, Thyroid Stimulating Hormone (TSH) 5.11H, Total Bilirubin 1.3#H, Total Creatine Kinase 333*H, Total Protein 7.0, Troponin I 0.045, Valproic Acid (Depakene) Level 8L, White Blood Count 6.25 07/08/16 13:30: Urine Bacteria None seen, Urine Bilirubin Negative, Urine Clarity Clear, Urine Collection Type Random voided, Urine Color Yellow, Urine Glucose (UA) 3+H, Urine Hyaline Casts Rare, Urine Ketones 1+H, Urine Leukocyte Esterase Negative, Urine Nitrite Negative, Urine Protein TraceH, Urine RBC 0-2, Urine RBC (Auto) Trace-intactH, Urine Specific [place] 1.020, Urine Squamous Epithelial Cells 0-2 , Urine Urobilinogen 0.2, Urine WBC 0-2, Urine pH 5.0, Volume Urine Centrifuged 12 ml 07/08/16 21:00: Troponin I 0.048 07/09/16 05:55: Alanine Aminotransferase (ALT/SGPT) 40, Albumin 3.3L, Albumin/Globulin Ratio 1.031L, Alkaline Phosphatase 72, Anion Gap 11.7, Aspartate Amino Transf (AST/ SGOT) 26, BUN/Creatinine Ratio 26H, Basophils # (Auto) 0.0, Basophils (%) (Auto ) 1, Blood Urea Nitrogen 18, Calcium Level 8.9, Calcium/Ionized Calcium Ratio 4.1, Calculated Osmolality 277L, Carbon Dioxide Level 26, Chloride Level 105, Creatinine 0.69L, Eosinophils # (Auto) 0.2, Eosinophils (%) (Auto) 3, Estimat Glomerular Filtration Rate 134.9, Estimated GFR (Non- 111.5, Glucose Level 266#H, Hematocrit 40.50, Hemoglobin 14.0, Lymphocytes # (Auto) 2.8 , Lymphocytes (%) (Auto) 45, Mean Corpuscular Hemoglobin 30.4, Mean Corpuscular Hemoglobin Concent 34.6, Mean Corpuscular Volume 88, Mean Platelet Volume 11.6H , Monocytes # (Auto) 0.6, Monocytes (%) (Auto) 10, Neutrophils # (Auto) 2.7, Neutrophils (%) (Auto) 43L, Platelet Count 193, Potassium Level 4.5, Red Blood Count 4.60, Red Cell Distribution Width 12.4, Sodium Level 138, Total Bilirubin 1.1H, Total Protein 6.5, Troponin I 0.105H, White Blood Count 6.38, Magnesium Level 2.0 07/09/16 15:20: Total Creatine Kinase 165#, Troponin I 0.075 07/11/16 05:45: Albumin 3.2L, Anion Gap 12.5, Blood Urea Nitrogen 14, Calcium Level 9.3, Carbon Dioxide Level 30H, Chloride Level 101, Creatinine 0.70L, Digoxin Level 0.70L, Estimat Glomerular Filtration Rate 132.7, Estimated GFR (Non- 109.6, Glucose Level 151#H, Phosphorus Level 4.4, Potassium Level 4.3, Prothromb Time International Ratio 1.1, Prothrombin Time 12.6H, Sodium Level 139 CAITLIN 07/11 NSR with 1 AVB, no atrial fibrillation. IMAGING 07/12/16 ECHOCARDIOGRAM: PENDING 07/10/16 CHEST PA/LAT (2 VIEW)* INDICATION: Respiratory distress. Study compared 01/08/2016 FINDINGS: Enlargement of the heart is unchanged in magnitude and configuration. No focal consolidation. No effusion or pneumothorax. No significant atelectasis. IMPRESSION: Enlargement of the cardiac silhouette stable. No acute pathology or change identified. 07/09/16 CT HEAD WO PROCEDURE: CT head without contrast. TECHNIQUE: Multiple contiguous axial images were obtained through the brain without the use of intravenous contrast. INDICATION: Fall. Exam compared 09/11/2015. Cerebrocortical atrophy and vascular calcifications are chronic findings. There is some mild periventricular white matter hypodensity also chronic. There is no intracranial hemorrhage. No acute extra-axial collection. There is no hemo- sinus. No calvarial fracture deformity. IMPRESSION: Chronic stable senescent changes with no hemorrhage, fracture deformity, or other acute/posttraumatic sequelae. 07/08/16 PELVIS INDICATION: 76-year-old male injured in fall, presents with hip pain. COMPARISONS: None. FINDINGS: Single view of the pelvis is provided. The film is underpenetrated. There is otherwise no definite evidence of new or healing fractures, bony destruction or remodeling. Age-appropriate degenerative changes are seen in both hips but both femoral heads appear well-seated within their respective acetabula. IMPRESSION: Age-appropriate degenerative changes, otherwise no evidence of acute fracture or subluxation suggested. The film, however, is underpenetrated which does limit assessment. ASSESSMENT Ruddy Santos is a 76 year old male admitted from ED 07/08 where he presented with complaint of falls at home and was found to have atrial fibrillation with intermittent RVR. He had mild elevation of CPK and troponin. He has increased paranoia with underlying diagnosis of schizophrenia. He has other chronic problems. PLAN * Acute Respiratory Distress: Attributed to atrial fibrillation. CXR reassuring. Oxygen protocol. IS. * Atrial Fibrillation with Intermittent RVR: Converted to NSR after receiving digoxin IV load. Continued digoxin PO. [id number] score = 4 (4%/year risk of stroke.) Discussed anticoagulation and started warfarin. Echo pending. * Falls at home: PT/OT eval and treat. May benefit from skilled care. * Schizophrenia, Paranoia: Increased paranoia noted. Consider screening/psych eval for placement once medical conditions are stable. Continued risperidone, quetiapine, divalproex. * Chest Pain: Resolved * Elevated Troponin: Resolved. Mild with peak troponin 0.105 07/09. Observe. Monitor tele. * Elevated CPK: Mild, resolving. Attributed to falls at home. * Hypotension: Attributed to arrhythmia, dehydration. Resolved with IVF. * Physical Deconditioning: PT/OT eval and treat. Encourage OOB as much as possible. * F/E/N: Diabetic diet. Peripheral IV. I&O, daily weight. * Prophylaxis: Enoxaparin * Code Status: Full * Dispo: Inpatient, ICU initially. Transferred to med/surg 07/11. Needs psych eval and may need psych hospitalization after stabilization of his medical issues. If psych issues remain stable, then he would instead benefit from skilled care/rehab. CHRONIC ISSUES * Hypothyroidism: TSH mildly elevated at 5.11. Repeat in 3-4 weeks and increase dose if still elevated. Levothyroxine. * Constipation: Bowel regimen * Diabetes Mellitus Type II, Uncontrolled: A1C = 8.7. Glimepiride, metformin. Sliding scale. * HTN: Not on BP med at home. Had some transient low BP this hospitalization. Observe. Consider LADY-I. LONDON RODRIGUEZ MD Jul 11, 2016 13:43
[2016-07-11] MEDS: SODIUM CHLORIDE FLUSH 3 ML SYR IV SCH (14:14)
[2016-07-11 15:41] VITALS: BP 136/63
--- NOTE | 2016-07-11 15:58 | NUR ---
Pt resting in bed, father at bedside.
[2016-07-11] MEDS: warFARin 5 MG (COUMADIN) TAB PO SCH (17:49)
--- NOTE | 2016-07-11 18:00 | NUR ---
Accu check results 281 mg/dl, 5 units humalog given.
--- NOTE | 2016-07-11 18:50 | NUR ---
Report received, care assumed.
--- NOTE | 2016-07-11 19:10 | NUR ---
Pt sitting up in chair. Denies discomfort. Reports having a "boring" day. No needs at this time. Cooperative with assessment.
--- NOTE | 2016-07-11 19:58 | NUR ---
Pt found lying in bed on 3 l/min NC, SPO2 92%. IS x4 with poor effort and interest, Pt more worried about getting something good to eat.
[2016-07-11] MEDS: QUEtiapine 100 MG (SEROquel) TAB IMMEDIATE RELEASE PO SCH (21:00)
[2016-07-11] MEDS: DIVALPROEX EXT RELEASE 500 MG (DEPAKOTE ER) TAB PO SCH (21:00)
--- NOTE | 2016-07-11 21:00 | NUR ---
Pt took evening medications without difficulty. Reports doing fine now. Denies other needs. Call light in reach. Bed alarm on.
[2016-07-11 23:54] VITALS: BP 127/68
[2016-07-12] MEDS: LEVOTHYROXINE 50 MCG (LEVOTHROID) TABLET PO SCH (06:21)
--- NOTE | 2016-07-12 06:23 | NUR ---
Pt took AM med without difficulty. No c/o discomfort this shift. Pt hasvoided several times through the night. Has exhibited some mild confusion, has been easily reoriented when necessary. No other needs at this time. Call light in reach, bed alarm on.
[2016-07-12] MEDS: INSULIN LISPRO 1 UNIT/0.01 ML (HUMALOG) DOSE SC SCH ×4 (07:30→21:00)
[2016-07-12 07:49] VITALS: BP 128/67
[2016-07-12] MEDS: ENOXAPARIN 40 MG/0.4 ML (LOVENOX) SYR SC SCH (08:55)
[2016-07-12] MEDS: DIGOXIN 0.25 MG (LANOXIN) TAB PO SCH (08:56)
[2016-07-12] MEDS: risperiDONE 1 MG (RisperDAL) TAB PO SCH (08:56)
[2016-07-12] MEDS: SODIUM CHLORIDE FLUSH 3 ML SYR IV SCH (08:56)
[2016-07-12] MEDS: GLIMEPIRIDE 2 MG (AMARYL) TAB PO SCH ×2 (08:56→17:16)
[2016-07-12] MEDS: hydrOXYzine 25 MG (ATARAX) TABLET PO SCH ×2 (08:56→21:38)
[2016-07-12] MEDS: POLYETHYLENE GLYCOL 17 GM (MIRALAX) PACKET PO SCH (08:56)
[2016-07-12] MEDS: metFORMIN 1000 MG (GLUCOPHAGE) TABLET PO SCH ×2 (08:56→17:16)
--- NOTE | 2016-07-12 09:00 | NUR ---
Marc is up in chair for breakfast, medications and assessment at this time. He is no distress and no pain. Encouragement is provided to the patient to help him participate with routine morning hygiene. He ambulates to the shower with walker and SBA. He responds well and is compliant. Affect is blunt and Ruddy struggles to express an understanding of the cares being provided, but he remains willing to participate with interventions. Assessment is ongoing and will continue to monitor.
--- NOTE | 2016-07-12 09:17 | NUR ---
Per Dr. Manzano's request SW contacted [facility] Ju[facility] to request a consult. Jessica Ryder therapist, will be here at 11:[address] Bryant notified.
--- NOTE | 2016-07-12 09:25 | NUR ---
NUTRITION ASSESSMENT Level 1 Patient: Ruddy Santos Age/Sex: 76/M Date Screened: 07-12-16 Weight: 266.6#/121.2 kg Height: 73 inches Primary Diagnosis: hyperglycemia Diet Order: medium diabetic Relevant labs: glucose 151 (417 on admission), Hgb A1c 8.7, TSH 5.11 Food allergies: N Nutrition Assessment Criteria Age over 80: N Body Mass Index (BMI) under 19: N Admission Screening Indicates Risk? 3 points Moderate/High Risk Diagnosis: 3 points TPN or PPN: N NPO or clear liquid diet: N Serum Glucose <70 or >180: 3 points Hgb A1c >6.7: 3 points Total: 12 points Risk Screen: __ Patient at low nutritional risk based on available data; reevaluate in 5-7 days __ Patient at moderate nutritional risk based on available data; reevaluate in 3-5 days _X_ Patient at high nutritional risk; complete Nutrition Assessment within 48 hours of admission.
--- NOTE | 2016-07-12 10:30 | Progress Note-A/P (E) ---
Progress Note Subjective: Patient is feeling better today. Discussed care and plan. Patient did request to use the phone, to call [facility] to tell them that he was going to a [facility] for [facility] care. Unclear if he has a relationship with the people at the [facility]. PV called to evaluate the patient. They feel the patient is oriented and stable from a psychiatric stand point. Objective: Current Medications Warfarin 10 mg DAILY@1700 PO Acetaminophen 650 mg Q6H PRN PO Bisacodyl 10 mg DAILY PRN SD Calcium Carbonate 300 mg Q8H PRN PO Dextrose PRN IV Dextrose 15 gm Q15M PRN PO Digoxin 0.5 mg DAILY PO Divalproex 1,500 mg HS PO Docusate 100 mg BID PRN PO Enoxaparin 40 mg Q24HR SC Glucagon 1 mg PRN IM Hydroxyzine 50 mg BID PO Levothyroxine 50 mcg DAILY@07 PO Magnesium Hydroxide 30 ml BID PRN PO Insulin Human Lispro QIDACHS SC Al Hydrox/Mg Hydrox/Simethicone 30 ml Q6H PRN PO Ondansetron 4 mg Q6H PRN IV Polyethylene Glycol 17 gm DAILY PO Quetiapine 100 mg HS PO Risperidone 2 mg DAILY PO Vital Signs Date Time Temp Pulse Resp B/P Pulse Ox O2 Delivery O2 Flow Rate FiO2 07/12/16 07:49 96.5 77 20 128/67 91 Nasal cannula 07/11/16 00:00 3L.00 I & O Past 24 hrs 07/12/16 07:00 Intake Total 1107 ml Output Total 2000 ml Balance -893 ml Intake Oral 1107 ml Output Urine Total 2000 ml Physical Exam General--Awake and alert. No distress. HEENT--Normocephalic. MMM in oral cavity. Nasal cannula in place. Lungs--Clear to auscultation bilaterally. Nonlabored respirations. Heart--RRR. Abdomen--Obese. Normal bowel sounds. Soft. Nondistended. Nontender. Extremities--No edema in lower extremities. Past 24 hour Lab Results Laboratory Results Past 24 Hrs 07/12/16 05:35: Prothromb Time International Ratio 1.3, Prothrombin Time 15.0 Imaging Results 07.08.16 Pelvis film IMPRESSION: Age-appropriate degenerative changes, otherwise no evidence of acute fracture or subluxation suggested. The film, however, is underpenetrated which does limit assessment. 07.09.16 CT Head IMPRESSION: Chronic stable senescent changes with no hemorrhage, fracture deformity, or other acute/posttraumatic sequelae. 07.11.16 CXR IMPRESSION: Enlargement of the cardiac silhouette stable. No acute pathology or change identified. Assessment/Plan Acute hypoxic respiratory failure Continue supplemental oxygen, wean as tolerated. Atrial fibrillation with RVR Intermittent. Converted with digoxin. Echo pending. Warfarin started. INR not yet therapeutic. Will add bridging lovenox. Records requested from [facility]. Hypotension Resolved with fluid resuscitation. Monitored patient closely in the ICU over night. Hyperglycemia with DM Patient's A1c is 8.7. Accu cheks, SSI, restarted home metformin and glimepiride. Rhabdomyolysis Creat normal. Monitor labs and provide IVF's. CPK normalized. Elevated troponin 0.045-->0.048-->0.105-->00.75 normalized. Endorsed chest pain and palpitation on admission, resolved. EKG's normal. Left hip pain Imaging negative. Falls Patient has hit head, CT head negative. Schizophrenia Continue home regimen (Quetiapine, risperidone and divalproex). PV evaluated patient and feels that he is fine for discharge to skilled or residential nursing facility. See written note in chart. Hypothyroidism TSH slightly elevated, continue home levothyroxine, have TSH rechecked in outpatient setting when patient is well. DVT proph Therapeutic enoxaparin. FEN Diabetic diet as tolerated. Electrolytes are currently normal. NS at 125/hr x 1L, reported history of CHF. Code status Full code. Dispo Inpatient for above issues. Weaning from oxygen. Look to d/c to skilled care in the next 1-2 days. STEVE MONTES MD Jul 12, 2016 10:30 FEN Diabetic diet as tolerated. Electrolytes--hyperkalemia, improved with IVF'S. NS at 125/hr x 1L, reported history of CHF. Code status Full code. Dispo Inpatient for above issues. ICU to monitor hypotension closely. Afib developed this afternoon, rates vary from 100-140's. Troponin has bumped, rechecking this afternoon. Will touch base with Dr. Hilton. STEVE MONTES MD Jul 12, 2016 10:30
--- NOTE | 2016-07-12 11:06 | NUR ---
[facility] is in to assess the patient at this time.
--- NOTE | 2016-07-12 12:15 | NUR ---
Norm is sleeping in bed. Respirations are even and unlabored. Skin is clean and dry. No evidence of distress
--- NOTE | 2016-07-12 12:32 | NUR ---
MULTIDISCIPLINARY MTG/DR. MONTES: Pt. was up to the shower today. [place] will be here at 11:00 to evaluate Pt. and make sure he is stable and able to go to the [facility]. Pt. wants to go to [facility] for skilled care upon discharge. Pt. expected to discharge in a day or two. SW will contact [facility] for acceptance to their facility.
--- NOTE | 2016-07-12 13:52 | NUR ---
Patient completes ambulation with PT at this time. He uses SBA and walker
--- NOTE | 2016-07-12 14:00 | NUR ---
Visited with Pt. and informed him [facility]'t have any openings at this time. Discussed with Pt. about the process of going to skilled care and then transitioning to become a resident once he is finished with skilled care. Reviewed other facilities that provide skilled care with Pt. Pt. would like SW to contact [facility] regarding acceptance for skilled care at their facility. [facility] has provided [facility] with information and waiting for their response.
--- NOTE | 2016-07-12 14:11 | PT Daily Note Inpatient (E) ---
PT Daily Treatment Service Date/Time 07/12/16, 13:55 Medical Diagnosis: (1) Hypotension (2) Weakness ICD Code: R53.1 (3) Hyperglycemia (4) Rhabdomyolysis ICD Code: M62.82 Physical Therapy: (1) Weakness ICD Code: R53.1 Precaution/Isolation: Standard Precautions Resuscitation Status: Full Code Fall Level: High Risk 51 or greater Subjective Pt sitting in recliner. Wanting to take a nap but agrees to therapy. Oxygen Delivery: Nasal cannula O2 liters/minute: 3L Treatments Sit, Stand, Supine: Sitting, Long Sitting Extremity: Both Lower Extremity Assistance: AAROM (at times on left LE), AROM Repetition: 2 x 10 Exercise: AP, QS, Heel Slides, Hip Abduction, SLR, LAQ, Hip Flexion Transfers Sit-Supine: Minimal Assistance Sitting Edge of Bed: Contact Guard Assist Sit-Stand from bed: Minimal Assistance (from recliner.) Stand-Sit: Contact Guard Assist (with cues to reach back for bed with both hands.) Gait Ambulation: Contact Guard Assist Distance Walked: 70 feet Assistive Device: FWW Gait Description: Short Step Length (short quick steps.), Flexed Trunk Gait Training: Limitations: Fatigue Pt required cues to take slow deep breaths, step up into walker, take bigger slower steps , and for guidance.. Education/Plan Assessment Safety Awareness: Impaired Response to Treatment: Improving Plan Patient will be seen: Daily Tuesday-Tuesday Coding Time In: 13:22 Time Out: 13:54 Total Minutes: 32 Charges: 58207 Exercise Therp 15 m (19), 08449 Gait Training 15 mi (13) Ayaan Liz RICE [employer]CH[employer]IC Jul 12, 2016 14:11
--- NOTE | 2016-07-12 14:26 | NUR ---
NUTRITION ASSESSMENT Level II Patient: Ruddy Santos Age/Sex: 76/M Date Assessed: 07-12-16 ASSESSMENT Pertinent History: Patient admitted with hyperglycemia and screened at high nutritional risk secondary to increased falls/weakness at home with concern for poor self-care as well as hyperglycemia. PMHx includes schizophrenia, CHF, diabetes, and hyperthyroidism. He had documented weight loss last year, confirmed with PCP office, showing 50# weight loss from 2014 to October,. Since then, he has regained ~20#. He lives alone at home but plans are being made for NH. Meds/Nutrition: Miralax, Synthroid, Metformin, Glimepiride, Coumadin, Humalog Weight: 266.6#/121.2 kg Height: 73 inches Body Mass Index (BMI): 35.3 [place] Body Weight : 196#/89 kg % IBW: 136% GASTROINTESTINAL Appetite: good, eating 90-100% Diet Order: medium diabetic Unintentional loss of >10 lbs. in 3 months: N Difficult to chew/swallow: N Diabetes: Yes Relevant Labs: glucose 151 (417 on admission), Hgb A1c 8.7, TSH 5.11 Calculations for Nutritional Assessment Estimated calorie needs: 22-25 kcals/kg = 2,660-3,025 kcals (minus 1,000 for weight loss) Estimated protein needs: 1.0-1.1 g/kg ABW = 97-106 g./day DIAGNOSIS 1. Nutrition Diagnosis: Potential for inadequate intake related to concern for inability to adequately prepare meals as evidenced by increasing falls/weakness at home with marked hyperglycemia. NUTRITIONAL INTERVENTION Goal: Patient will receive adequate nutrition to meet his needs. Plan: Consider large diabetic diet to better meet patients nutritional needs. Emphasize protein or foods with <5 g. total CHO for snacks if c/o hunger between meals. NH placement after DC will ensure he receives balanced meals each day in a safe environment. MONITORING & EVALUATION _X_ Monitor patients menu selections _X_ Monitor patients food intake per nursing notes __ Monitor NPO/clear liquid days __ Monitor lab values __ Monitor I&O __ Other
[2016-07-12 15:56] VITALS: BP 132/63
[2016-07-12] MEDS: warFARin 5 MG (COUMADIN) TAB PO SCH (17:16)
--- NOTE | 2016-07-12 18:09 | NUR ---
Norm is up in chair watching television and eating supper. He has no complaints or concerns. No pain or distress. He is in agreement with treatments and future plans to discharge to a group home care facility in the future.
--- NOTE | 2016-07-12 19:10 | NUR ---
care relinquished and report given to Shefali RUSHING
--- NOTE | 2016-07-12 20:00 | NUR ---
Patient resting in bed watching TV. Disoriented to place. Reminded patient why he was in the hospital, and seemed to understand. Patient does use call light. Bed alarm on for safety. No discomforts at this time.
--- NOTE | 2016-07-12 20:05 | NUR ---
Pt found sleeping in bed, SPO2 95% ON 3 L/MIN NC.
[2016-07-12] MEDS: QUEtiapine 100 MG (SEROquel) TAB IMMEDIATE RELEASE PO SCH (21:38)
[2016-07-12] MEDS: DIVALPROEX EXT RELEASE 500 MG (DEPAKOTE ER) TAB PO SCH (21:38)
[2016-07-12] MEDS: ENOXAPARIN 120 MG/0.8 ML (LOVENOX) SYR SC SCH (21:42)
[2016-07-12 23:20] VITALS: BP 120/68
--- NOTE | 2016-07-13 06:30 | NUR ---
Rested at intervals tonight. Used call light when he needed to go to the bathroom. Patient used urinal in bed with assistance of one staff. At times is confused. Has not been irritable with staff tonight. Reorients readily. Oxygen remains on at 3 liters per nasal cannula. No discomforts voiced this morning. Bed alarm on for patient safety.
[2016-07-13] MEDS: LEVOTHYROXINE 50 MCG (LEVOTHROID) TABLET PO SCH (06:35)
[2016-07-13] MEDS: INSULIN LISPRO 1 UNIT/0.01 ML (HUMALOG) DOSE SC SCH ×4 (06:35→20:56)
[2016-07-13 08:00] VITALS: BP 148/74
--- NOTE | 2016-07-13 08:58 | Progress Note-A/P (E) ---
Progress Note Subjective: Patient is resting in bed. He is off of his oxygen. Discussed discharge plans. He verbalizes understanding. Objective: Current Medications Warfarin 10 mg DAILY@1700 PO Acetaminophen 650 mg Q6H PRN PO Bisacodyl 10 mg DAILY PRN DC Calcium Carbonate 300 mg Q8H PRN PO Dextrose PRN IV Dextrose 15 gm Q15M PRN PO Digoxin 0.5 mg DAILY PO Divalproex 1,500 mg HS PO Docusate 100 mg BID PRN PO Enoxaparin 40 mg Q24HR SC Glucagon 1 mg PRN IM Hydroxyzine 50 mg BID PO Levothyroxine 50 mcg DAILY@07 PO Magnesium Hydroxide 30 ml BID PRN PO Insulin Human Lispro QIDACHS SC Al Hydrox/Mg Hydrox/Simethicone 30 ml Q6H PRN PO Ondansetron 4 mg Q6H PRN IV Polyethylene Glycol 17 gm DAILY PO Quetiapine 100 mg HS PO Risperidone 2 mg DAILY PO Vital Signs Date Time Temp Pulse Resp B/P Pulse Ox O2 Delivery O2 Flow Rate FiO2 07/13/16 08:00 97.9 76 20 148/74 95 Nasal cannula 07/11/16 00:00 3L.00 I & O Past 24 hrs 07/13/16 07:00 Intake Total 1243 ml Output Total 2500 ml Balance -1257 ml Intake Oral 1243 ml Output Urine Total 2500 ml Physical Exam General--Awake and alert. No distress. HEENT--Normocephalic. MMM in oral cavity. Nasal cannula in place. Lungs--Clear to auscultation bilaterally. Nonlabored respirations. Heart--RRR. Abdomen--Normal bowel sounds. Soft. Nondistended. Nontender. Extremities--No edema in lower extremities. Imaging Results 07.08.16 Pelvis film IMPRESSION: Age-appropriate degenerative changes, otherwise no evidence of acute fracture or subluxation suggested. The film, however, is underpenetrated which does limit assessment. 07.09.16 CT Head IMPRESSION: Chronic stable senescent changes with no hemorrhage, fracture deformity, or other acute/posttraumatic sequelae. 07.11.16 CXR IMPRESSION: Enlargement of the cardiac silhouette stable. No acute pathology or change identified. Assessment/Plan Acute hypoxic respiratory failure Continue supplemental oxygen, weaning as tolerated. Atrial fibrillation with RVR Intermittent. Converted with digoxin. Echo pending. Warfarin started. INR not yet therapeutic. Bridging with lovenox. Records requested from [facility]. Hypotension Resolved with fluid resuscitation. Monitored patient closely in the ICU over night. Hyperglycemia with DM Patient's A1c is 8.7. Accu cheks (120-193), SSI, restarted home metformin and glimepiride. Rhabdomyolysis Creat normal. Monitor labs and provide IVF's. CPK normalized. Elevated troponin 0.045-->0.048-->0.105-->00.75 normalized. Endorsed chest pain and palpitation on admission, resolved. EKG's normal. Left hip pain Imaging negative. Falls Patient has hit head, CT head negative. Schizophrenia Continue home regimen (Quetiapine, risperidone and divalproex). PV evaluated patient and feels that he is fine for discharge to skilled or residential nursing facility. See written note in chart. Hypothyroidism TSH slightly elevated, continue home levothyroxine, have TSH rechecked in outpatient setting when patient is well. DVT proph Therapeutic enoxaparin. FEN Diabetic diet as tolerated. Electrolytes are currently normal. NS at 125/hr x 1L, reported history of CHF. Code status Full code. Dispo Inpatient for above issues. Weaning from oxygen. Look to d/c to skilled care in the next 1-2 days, once INR is approaching therapeutic range. STEVE MONTES MD Jul 13, 2016 08:57
--- NOTE | 2016-07-13 09:43 | NUR ---
Pt. has been accepted to skilled care at [facility]. [facility] asked SW to make Pt. aware that he will have a 4% out of pocket expense for his stay. This was explained to Pt. and he stated that was not a big concern for him. Pt. voiced some hesitation about discharging and after some conversation discovered this was mainly due to the fear of the unknown. SW did describe the houses at [facility] and tried to explain what to expect during his skilled stay. Pt. stated he feels like things are being rushed. SW explained she is trying to help prepare him for discharge and the doctor will assess him daily and let SW and him know when he is ready for discharge.
--- NOTE | 2016-07-13 09:50 | NUR ---
Pt worked with PT this am. States he is very tired after this. Requests to lie back down in bed. Skin warm, dry, intact. Resprs nonlabored, even on 3L. Took AM medications well. Denies needs.
--- NOTE | 2016-07-13 09:53 | PT Daily Note Inpatient (E) ---
PT Daily Treatment Service Date/Time 07/13/16, 09:39 Medical Diagnosis: (1) Hypotension (2) Weakness ICD Code: R53.1 (3) Hyperglycemia (4) Rhabdomyolysis ICD Code: M62.82 Physical Therapy: (1) Weakness ICD Code: R53.1 Precaution/Isolation: Standard Precautions Resuscitation Status: Full Code Fall Level: High Risk 51 or greater Subjective Pt sitting in recliner filling out menu. Agrees to therapy. Some confusion. Oxygen Delivery: Nasal cannula O2 liters/minute: 3 Treatments Sit, Stand, Supine: Sitting, Long Sitting Extremity: Both Lower Extremity Assistance: AAROM Repetition: 2 x 10 Exercise: AP, QS, Heel Slides, Hip Abduction, SLR, LAQ, Hip Flexion Static Balance: WBOS Duration: 1x 60 seconds Transfers Sit-Stand from bed: Contact Guard Assist (from recliner with cues to push off chair with both hands.) Stand-Sit: Contact Guard Assist (with cues for safety.) Gait Ambulation: Contact Guard Assist (with assist to direct walker around obstacles and as he veers off to the right.) Distance Walked: 120 feet with 2 standing rest breaks. Pt requires cues to shrimp picker feet, step up into walker, and for guidance. Assistive Device: FWW Gait Description: Decreased [place], Slow, Shuffling, Flexed Trunk Gait Training: Limitations: Fatigue Education/Plan Assessment Pt required more instruction to complete tasks but walked further. Safety Awareness: Impaired Plan Patient will be seen: Daily Tuesday-Tuesday Coding Time In: 9:04 Time Out: 9:37 Total Minutes: 33 Charges: 22121 Exercise Therp 15 m (20), 85030 Gait Training 15 mi (13) Ayaan Liz PTA Jul 13, 2016 09:53
[2016-07-13] MEDS: hydrOXYzine 25 MG (ATARAX) TABLET PO SCH ×2 (09:59→21:23)
[2016-07-13] MEDS: metFORMIN 1000 MG (GLUCOPHAGE) TABLET PO SCH ×2 (09:59→18:26)
[2016-07-13] MEDS: DIGOXIN 0.25 MG (LANOXIN) TAB PO SCH (09:59)
[2016-07-13] MEDS: risperiDONE 1 MG (RisperDAL) TAB PO SCH (10:00)
[2016-07-13] MEDS: ENOXAPARIN 120 MG/0.8 ML (LOVENOX) SYR SC SCH ×2 (10:00→21:23)
[2016-07-13] MEDS: POLYETHYLENE GLYCOL 17 GM (MIRALAX) PACKET PO SCH (10:00)
[2016-07-13] MEDS: GLIMEPIRIDE 2 MG (AMARYL) TAB PO SCH ×2 (10:00→18:26)
[2016-07-13] MEDS: SODIUM CHLORIDE FLUSH 3 ML SYR IV SCH (10:09)
[2016-07-13 16:00] VITALS: BP 105/63
[2016-07-13] MEDS: warFARin 5 MG (COUMADIN) TAB PO SCH (18:26)
--- NOTE | 2016-07-13 18:30 | NUR ---
Pt has been tired this shift, requesting to lie down in bed after every meal of sitting up in chair. Encouraged to stay up longer. Pt has been AAO this shift, joking with staff on occasion. SL intact to . Pt weaned to RA this shift. Tolerating this well. Pt does not usually call for help, either hollers out or attempts to get up on his own. Bed, tabs, and pressure alarm on for safety.
[2016-07-13] MEDS: QUEtiapine 100 MG (SEROquel) TAB IMMEDIATE RELEASE PO SCH (21:22)
[2016-07-13] MEDS: DIVALPROEX EXT RELEASE 500 MG (DEPAKOTE ER) TAB PO SCH (21:23)
[2016-07-13 23:55] VITALS: BP 137/71
--- NOTE | 2016-07-14 00:25 | NUR ---
Pt. awake; disorientated; denies discomfort. O2 currently applied at 1L although O2 SATS are in low 90's- 92% currently- when awake. H2O provided; pt. spills water on gown; dry yellow gown applied. Bed alarm provides safety measure; pt.'s room is also located close to nurse's station for frequent observation. Call light within reach.
--- NOTE | 2016-07-14 01:00 | NUR ---
Pt. does not leave O2 on; current SATS are 92% on room air; O2 off at this time.
[2016-07-14] MEDS: LEVOTHYROXINE 50 MCG (LEVOTHROID) TABLET PO SCH (06:04)
[2016-07-14 06:26] LABS: MEAN CORPUSCULAR HEMOGLOBIN 30.9 PG (26.0-34.0); MEAN CORPUSCULAR HGB CONC 34.8 g/dL (31.0-37.0); MEAN CORPUSCULAR VOLUME 89 FL (80-100); MEAN PLATELET VOLUME 11.8 FL (6.0-9.5); PLATELET COUNT 177 10^3uL (150-450); WHITE BLOOD COUNT 5.37 10^3uL (4.0-11.0)
--- NOTE | 2016-07-14 06:30 | NUR ---
Accucheck is 172 this morning; sliding scale insulin not required. Pt. took PO med this A.M. without difficulty; denies discomfort. Pt. has set off bed alarm several times during the night; forgetful about activity parameters. Pt. required assistance to utilize urinal for voids. Pt. confused at times but cooperative with redirect. Call light and H2O within reach.
[2016-07-14] MEDS: INSULIN LISPRO 1 UNIT/0.01 ML (HUMALOG) DOSE SC SCH ×2 (06:37→11:30)
[2016-07-14 06:47] LABS: ALBUMIN 3.6 g/dL (3.4-5.0); ANION GAP 14.5 MEQ/L (3-15); MAGNESIUM* 2.3 mg/dL (1.6-2.3); PHOSPHORUS 3.6 mg/dL (2.4-4.9)
[2016-07-14 07:24] LABS: BAND NEUTROPHILS % 0 % (0-6); EOSINOPHILS % 0 % (0-4); LYMPHOCYTES # 2.1 #; MONOCYTES # 0.5 #; MONOCYTES % 10 % (3-11); RBC MORPH NORMAL (NORMAL); SEGMENTED NEUTROPHILS % 35 % (51-67); TOTAL CELLS COUNTED 100
[2016-07-14 07:50] VITALS: BP 138/69
[2016-07-14] MEDS: GLIMEPIRIDE 2 MG (AMARYL) TAB PO SCH (07:59)
[2016-07-14] MEDS: metFORMIN 1000 MG (GLUCOPHAGE) TABLET PO SCH (07:59)
[2016-07-14] MEDS ORDERED: WRF5T PO (08:44)
[2016-07-14] MEDS ORDERED: DGX.25T PO (08:44)
--- NOTE | 2016-07-14 08:53 | Discharge Summary (E) ---
Discharge Summary (A) Admit Date/Time Jul 08, 2016 at 18:15 Discharge Date/Time Jul 14, 2016 Admitting Provider Bel Montes MD Primary Care Provider Galen Dixon MD Attending Provider Bel Montes MD Consulting Provider Admission Diagnosis Hypotension Tachycardia Hyperglycemia with DM Rhabdomyolysis Left hip pain Falls Psych diagnosis History and Present Illness Mr. Santos is known to our service from a similar admit in the spring. He presents to the ED today after calling EMS for the second time in 2 days to help him up from a fall. EMS brought him into the ED after persistent encouragement. In the ED, the patient was found to have significant hyperglycemia, some hypotension and tachycardia. CPK was also found to be elevated. Admission was requested. Patient endorses increasing weakness over the last few years. He fell today, he reports hitting his head, but no LOC. He endorses some left hip pain. He does not have any insight to why he fell. He does endorse some CP and palpitations. Upon arrival to the ICU, the patient was tachycardic and dyspneic. He was needing to use the bathroom and working to get out of bed. Discussed medical history. Patient is a poor historian. Discussed current care plan. Hospital Course and Treatment Acute hypoxic respiratory failure Provided supplemental oxygen, weaned as tolerated. Atrial fibrillation with RVR Intermittent. Converted with digoxin. Echo pending. Warfarin started. INR 2.0 on morning of discharge. Bridged with lovenox. Hypotension Resolved with fluid resuscitation. Monitored patient closely in the ICU over night. Hyperglycemia with DM Patient's A1c is 8.7. Accu cheks (120-193), SSI, restarted home metformin and glimepiride. Rhabdomyolysis Creat normal. Monitor labs and provide IVF's. CPK normalized. Elevated troponin 0.045-->0.048-->0.105-->00.75 normalized. Endorsed chest pain and palpitation on admission, resolved. EKG's normal. Left hip pain Imaging negative. Falls Patient has hit head, CT head negative. Schizophrenia Continue home regimen (Quetiapine, risperidone and divalproex). PV evaluated patient and feels that he is fine for discharge to skilled or residential nursing facility. Written note on chart. Hypothyroidism TSH slightly elevated, continue home levothyroxine. TSH to be rechecked in outpatient setting when patient is well. DVT proph Therapeutic enoxaparin provided, INR became therapeutic on 07.14.16. FEN Diabetic diet as tolerated. Electrolytes are currently normal. NS at 125/hr x 1L, reported history of CHF. Code status Full code. Dispo Inpatient for above issues. Weaned from oxygen. Discharging to skilled at [facility]. INR is therapeutic today. Patient will need f/u with PCP in next 1-2 weeks. Discharge Physicial Exam Physical Exam General--Awake and alert. No distress. HEENT--Normocephalic. MMM in oral cavity. Nasal cannula has been removed. Lungs--Clear to auscultation bilaterally. Nonlabored respirations. Heart--RRR. Abdomen--Normal bowel sounds. Soft. Nondistended. Nontender. Extremities--No edema in lower extremities. Radiology/Laboratory Data Laboratory Results Past 10Days 07/08/16 13:04: Alanine Aminotransferase (ALT/SGPT) 40, Albumin 3.7, Albumin/Globulin Ratio 1.121, Alkaline Phosphatase 84, Anion Gap 15.3H, Aspartate Amino Transf (AST/ SGOT) 27, BUN/Creatinine Ratio 22H, Basophils # (Auto) 0.0, Basophils (%) (Auto ) 0, Blood Urea Nitrogen 16, C-Reactive Protein 1.10H, Calcium Level 9.2, Calcium/Ionized Calcium Ratio 4.1, Calculated Osmolality 282, Carbon Dioxide Level 27, Chloride Level 99, Creatinine 0.73L, Eosinophils # (Auto) 0.1, Eosinophils (%) (Auto) 2, Estimat Glomerular Filtration Rate 126.4, Estimated GFR (Non- 104.5, Glucose Level 417#*H, Hematocrit 43.80, Hemoglobin 15.3, Hemoglobin A1c 8.7H, Lymphocytes # (Auto) 1.8, Lymphocytes (%) (Auto) 29, Mean Corpuscular Hemoglobin 30.4, Mean Corpuscular Hemoglobin Concent 34.9, Mean Corpuscular Volume 87, Mean Platelet Volume 11.4H, Monocytes # (Auto) 0.6, Monocytes (%) (Auto) 10, Myoglobin 218H, Neutrophils # (Auto) 3.7 , Neutrophils (%) (Auto) 59, Platelet Count 180, Potassium Level 5.3H, Red Blood Count 5.03, Red Cell Distribution Width 12.2, Sodium Level 136, Thyroid Stimulating Hormone (TSH) 5.11H, Total Bilirubin 1.3#H, Total Creatine Kinase 333*H, Total Protein 7.0, Troponin I 0.045, Valproic Acid (Depakene) Level 8L, White Blood Count 6.25 07/08/16 13:30: Urine Bacteria None seen, Urine Bilirubin Negative, Urine Clarity Clear, Urine Collection Type Random voided, Urine Color Yellow, Urine Glucose (UA) 3+H, Urine Hyaline Casts Rare, Urine Ketones 1+H, Urine Leukocyte Esterase Negative, Urine Nitrite Negative, Urine Protein TraceH, Urine RBC 0-2, Urine RBC (Auto) Trace-intactH, Urine Specific [place] 1.020, Urine Squamous Epithelial Cells 0-2 , Urine Urobilinogen 0.2, Urine WBC 0-2, Urine pH 5.0, Volume Urine Centrifuged 12 ml 07/08/16 21:00: Troponin I 0.048 07/09/16 05:55: Alanine Aminotransferase (ALT/SGPT) 40, Albumin 3.3L, Albumin/Globulin Ratio 1.031L, Alkaline Phosphatase 72, Anion Gap 11.7, Aspartate Amino Transf (AST/ SGOT) 26, BUN/Creatinine Ratio 26H, Basophils # (Auto) 0.0, Basophils (%) (Auto ) 1, Blood Urea Nitrogen 18, Calcium Level 8.9, Calcium/Ionized Calcium Ratio 4.1, Calculated Osmolality 277L, Carbon Dioxide Level 26, Chloride Level 105, Creatinine 0.69L, Eosinophils # (Auto) 0.2, Eosinophils (%) (Auto) 3, Estimat Glomerular Filtration Rate 134.9, Estimated GFR (Non- 111.5, Glucose Level 266#H, Hematocrit 40.50, Hemoglobin 14.0, Lymphocytes # (Auto) 2.8 , Lymphocytes (%) (Auto) 45, Mean Corpuscular Hemoglobin 30.4, Mean Corpuscular Hemoglobin Concent 34.6, Mean Corpuscular Volume 88, Mean Platelet Volume 11.6H , Monocytes # (Auto) 0.6, Monocytes (%) (Auto) 10, Neutrophils # (Auto) 2.7, Neutrophils (%) (Auto) 43L, Platelet Count 193, Potassium Level 4.5, Red Blood Count 4.60, Red Cell Distribution Width 12.4, Sodium Level 138, Total Bilirubin 1.1H, Total Protein 6.5, Troponin I 0.105H, White Blood Count 6.38, Magnesium Level 2.0 07/09/16 15:20: Total Creatine Kinase 165#, Troponin I 0.075 07/11/16 05:45: Albumin 3.2L, Anion Gap 12.5, Blood Urea Nitrogen 14, Calcium Level 9.3, Carbon Dioxide Level 30H, Chloride Level 101, Creatinine 0.70L, Digoxin Level 0.70L, Estimat Glomerular Filtration Rate 132.7, Estimated GFR (Non- 109.6, Glucose Level 151#H, Phosphorus Level 4.4, Potassium Level 4.3, Prothromb Time International Ratio 1.1, Prothrombin Time 12.6H, Sodium Level 139 07/12/16 05:35: Prothromb Time International Ratio 1.3, Prothrombin Time 15.0H 07/14/16 05:40: Albumin 3.6, Anion Gap 14.5, Blood Urea Nitrogen 19H, Calcium Level 9.3, Carbon Dioxide Level 28, Chloride Level 101, Creatinine 0.71L, Estimat Glomerular Filtration Rate 130.5, Estimated GFR (Non- 107.9, Glucose Level 110#, Phosphorus Level 3.6, Potassium Level 4.1, Prothromb Time International Ratio 2.0H, Prothrombin Time 22.5H, Sodium Level 140, Absolute Band Neutrophils 0.0, Atypical Lymphocytes 15, Band Neutrophils % 0, Basophils # (Auto) , Basophils # (Manual) 0.0, Basophils % (Manual) 0, Basophils (%) (Auto) , Blood Morphology Comment Normal, Differential Total Cells Counted 100, Eosinophils # 0.0, Eosinophils # (Auto) , Eosinophils % (Manual) 0, Eosinophils (%) (Auto) , Hematocrit 41.10, Hemoglobin 14.3, Lymphocytes # 2.1, Lymphocytes # (Auto) , Lymphocytes % (Manual) 40, Lymphocytes (%) (Auto) , Magnesium Level 2.3, Mean Corpuscular Hemoglobin 30.9, Mean Corpuscular Hemoglobin Concent 34.8, Mean Corpuscular Volume 89, Mean Platelet Volume 11.8H, Metamyelocytes % 0, Monocytes # 0.5, Monocytes # (Auto) , Monocytes % (Manual) 10, Monocytes (%) ( Auto) , Neutrophils # 1.9, Neutrophils # (Auto) , Neutrophils (%) (Auto) , Platelet Count 177, Red Blood Count 4.63, Red Cell Distribution Width 12.1, Segmented Neutrophils % 35L, White Blood Count 5.37 1.5.17 Pelvis film IMPRESSION: Age-appropriate degenerative changes, otherwise no evidence of acute fracture or subluxation suggested. The film, however, is underpenetrated which does limit assessment. 6. CT Head IMPRESSION: Chronic stable senescent changes with no hemorrhage, fracture deformity, or other acute/posttraumatic sequelae. 8. CXR IMPRESSION: Enlargement of the cardiac silhouette stable. No acute pathology or change identified. Discharge Provider's Instructions You were admitted for high blood glucose, falls and low blood pressure. These have improved. You also were found to have a rapid heart rate with an irregular rhythm (atrial fibrillation). You were started on digoxin and warfarin (blood thinner) for this. You are being discharged to fci at [facility]. You will need to follow up with your PCP in the next 2 weeks. Discharge Diet: Carbohydrate controlled Discharge Medications New Medications: Digoxin (Lanoxin) 0.25 Mg Tab 0.5 MG PO DAILY #30 Ref 0 TAB Warfarin (Warfarin) 5 Mg Tablet 10 MG PO DAILY@1700 #30 Ref 0 TAB Continued Medications: Bisacodyl (Dulcolax) 10 Mg Supp 10 MG SD DAILY PRN CONSTIPATION SUPP.RECT Divalproex Sodium (Divalproex Sodium ER) 500 Mg Tab.er.24h 1500 MG PO HS mood stablization Glimepiride (Glimepiride) 2 Mg Tablet 2 MG PO BID Diabetes #60 Hydroxyzine Pamoate (Hydroxyzine Pamoate) 50 Mg Capsule 50 MG PO BID anxiety/agitation Levothyroxine Sodium (Levothyroxine Sodium) 50 Mcg Tablet 50 MCG PO DAILY #30 Metformin HCl (Metformin HCl) 500 Mg Tablet 1000 MG PO BID TAB Polyethylene Glycol 3350 (Miralax) 17 Gm Powd.pack 17 GM PO DAILY regular bowel movements Ref 0 PKT Quetiapine Fumarate (Quetiapine Fumarate) 100 Mg Tablet 100 MG PO HS INSOMNIA Days 0 Risperidone (Risperidone) 2 Mg Tablet 2 MG PO DAILY delusions TAB Follow up Follow up Referrals: Family Practice - 07/21/16 @ [facility] with Galen Dixon MD Discharge Diagnosis Acute hypoxic respiratory failure Atrial fibrillation with RVR Hypotension Hyperglycemia with DM Rhabdomyolysis Elevated troponin Left hip pain Falls Schizophrenia Copies to: End of Report . BEL MONTES MD Jul 14, 2016 08:53
--- NOTE | 2016-07-14 08:53 | Discharge Instructions (E) ---
Discharge Instructions Instructions You were admitted for high blood glucose, falls and low blood pressure. These have improved. You also were found to have a rapid heart rate with an irregular rhythm (atrial fibrillation). You were started on digoxin and warfarin (blood thinner) for this. [facility] are [facility]. You will need to follow up with your PCP in the next 2 weeks. Discharge Diet: Carbohydrate controlled STEVE MONTES MD Jul 14, 2016 08:53
[2016-07-14] MEDS: hydrOXYzine 25 MG (ATARAX) TABLET PO SCH (09:14)
[2016-07-14] MEDS: risperiDONE 1 MG (RisperDAL) TAB PO SCH (09:14)
[2016-07-14] MEDS: SODIUM CHLORIDE FLUSH 3 ML SYR IV SCH (09:15)
[2016-07-14] MEDS: DIGOXIN 0.25 MG (LANOXIN) TAB PO SCH (09:15)
[2016-07-14] MEDS: POLYETHYLENE GLYCOL 17 GM (MIRALAX) PACKET PO SCH (09:15)
--- NOTE | 2016-07-14 12:15 | NUR ---
[facility] here to get patient.
--- NOTE | 2016-07-14 12:20 | NUR ---
Dismissed to [facility] per w/c accompanied by [facility] Staff. Skin w/p/d, Alert and oriented x 4, Resp reg and unlabored.
--- NOTE | 2016-07-14 12:30 | NUR ---
Reports called to Hanane johnston at [facility]. questions answered. States no further questions.
--- NOTE | 2016-08-02 14:52 | OT Therapy Evaluation (E) ---
Discharge Summary Service Date/Time 08/02/16, 14:50 Primary Diagnosis: (1) Hypotension (2) Weakness ICD Code: R53.1 (3) Hyperglycemia (4) Rhabdomyolysis ICD Code: M62.82 Treatment Diagnosis: (1) Weakness ICD Code: R53.1 Onset Date: 07/08/16 Start of Care Date: Jul 09, 2016 Summary of Discharge Therapy Comments Unable to reassess goals secondary to initial evaluation only completed. Pt transitioned to another facility for skilled services. Short Term Goals/Status Will Perform Feeding: With Setup/SBA (NOT MET.) Will Perform Grooming: With Setup/SBA (NOT MET.) Will Dress Upper Extremity: With Min Assistance (NOT MET.) Will Perform Functional Transf: With Setup/SBA (NOT MET.) STG #1 Pt will participate in 15 min of ther-ex with use of energy conservation techniques as needed. NOT MET. Group Home Goals/ Status Will Perform Feeding: Independently (NOT MET.) Will Dress Upper Extremity: Independently (NOT MET.) Will Dress Lower Extremity: With Min Assistance (and use of a/e as needed. NOT MET.) Will do Tub/Shower Transfer: With Min Assistance (NOT MET.) Will do Toilet Transfers: With Setup/SBA (NOT MET.) Will do Toilieting: With Setup/SBA (NOT MET.) Discharge Recommendations: Half-Way (TCU/NH) SLADE ANDERSON OT Aug 02, 2016 14:52
--- NOTE | 2016-09-17 09:21 | Physical Therapy Evaluation(E) ---
Discharge Summary Service Date/Time 09/17/16, 09:17 Primary Diagnosis: (1) Hypotension (2) Weakness ICD Code: R53.1 (3) Hyperglycemia (4) Rhabdomyolysis ICD Code: M62.82 Treatment Diagnosis: (1) Weakness ICD Code: R53.1 Onset Date: 07/08/2016 Start of Service Date: Jul 09, 2016 Summary of Progress Summary Comment The patient was seen from 07/09-07/13/2016 to address weakness and impaired activity tolerance. He did require encouragement at times for participation. The patient was discharged from facility on 07/14/2016 to [facility]. Improved transfers and activity tolerance noted over the course of his hospitalization. Distance Walked in Feet 120 feet with FWW CGA and assistance for walker management negotiating obstacles. . Assistive Device: FWW Assist: Min Assist/Contact Guard Gait Description: Decreased [place], Slow, Shuffling, Flexed Trunk Gait Limitations: Fatigue Transfer STG and Status Rolling: Contact Guard Assist Goal Status at Discharge: Goal Partially Met Sit-Supine: Not Assessed/NA Goal Status at Discharge: Goal Met Sitting Edge of Bed: Supervision or setup Supine-Sit: Minimal Assistance Goal Status at Discharge: Goal Met Sit-Stand from bed: Contact Guard Assist Goal Status at Discharge: Goal Met Stand-Sit: Contact Guard Assist Goal Status at Discharge: Goal Met Ambulation: Contact Guard Assist Goal Status at Discharge: Goal Partially Met Distance Walked: 120 feet with FWW on 3L 02 Barriers Limiting Function: Activity Tolerance, Motivation Transfer LTG and Status Rolling: Supervision or setup Goal Status at Discharge: Goal Not Met Sit-Supine: Supervision or setup Goal Status at Discharge: Goal Not Met Sitting Edge of Bed: Supervision or setup Goal Status at Discharge: Goal Not Met Supine-Sit: Supervision or setup Goal Status at Discharge: Goal Not Met Sit-Stand from bed: Supervision or setup Goal Status at Discharge: Goal Not Met Pivot Transfer: Supervision or setup Goal Status at Discharge: Goal Not Met Ambulation: Supervision or setup Goal Status at Discharge: Goal Not Met Discharge Recommendations: TCU/Skilled NH Service Recommendations: Continue Service (Patient would benefit from additional therapy services to improve his strength, activity tolerance, and overall functional mobility. He) Rationale for Recommendations Patient is discharged from therapy services at this facility and he is discharged to [facility] fpc facility. ABHISHEK EISENBERG PT Sep 17, 2016 09:21
== END 2016-07-14 11:20 | DRG 637 ==
LOC: EDUNIT# 12:17 → ED 12:19 → ICU 18:15 → MED/SURG 07-10 09:45
PROVIDERS: ADMIT Family Medicine; ATTEND Family Medicine
DX: E11.65 Type 2 diabetes mellitus with hyperglycemia (principal); J96.01 Acute respiratory failure with hypoxia; M62.82 Rhabdomyolysis; F20.0 Paranoid schizophrenia; I48.91 Unspecified atrial fibrillation; R00.0 Tachycardia, unspecified; E86.1 Hypovolemia; I50.9 Heart failure, unspecified; M25.552 Pain in left hip; R79.89 Other specified abnormal findings of blood chemistry; E03.9 Hypothyroidism, unspecified; I11.0 Hypertensive heart disease with heart failure; Z91.81 History of falling
CPT/HCPCS: 36415; 70450; 71020; 72170; 80053; 80069; 80162; 80164; 81003; 81015; 82550; 83036; 83735; 83874; 84443; 84484; 85025; 85610; 86140; 93005; 93010; 93306; 94760; 96360; 96361; 99284

== ENCOUNTER → 2016-07-08 | Outpatient (CLI) | payer BC, MEDICARE | LOC: EMS 12:22 | PROVIDERS: ATTEND Emergency Medicine | DX: R10.32 Left lower quadrant pain (principal); E11.9 Type 2 diabetes mellitus without complications; Z91.81 History of falling ==